=== PATIENT | male | born 1960 | race Two or more races ===

== ENCOUNTER 2016-05-28 10:23 | Inpatient (IN) | payer MEDICAID ==
[~2016-05-28] VITALS: Ht 177.8 cm; Wt 95.5 kg
[~2016-05-28 10:23] MED LIST: ALBUAER3 IN; ASPI81TA27 PO; ATOR20TA PO; BACL-63 PO; CLON05T PO; FENO5TAB PO; INSLANTI SC; LEVEPOW PO; LIDO5DIS21 TOP; METF-316 PO; METO5TAB2 PO; MORP15TA68 PO; NIFEDICAL PO; NOR10T PO; OMEP20CA5 PO; RANI-226 PO; SERT-274 PO; TAMS0.4C36 PO; TRAZ100T2 PO
[2016-05-28 11:57] LABS: Albumin 3.6 g/dL (3.4-5.0); BUN/Creatinine Ratio 10.8; Bilirubin, Total 0.6 mg/dL (0.2-1.0); Calcium 9.4 mg/dL (8.5-10.1); Potassium 3.4 mmol/L (3.5-5.1); Total Protein 8.1 g/dL (6.4-8.2)
[2016-05-28 12:11] LABS: Basophils # (auto) 0 uL; Basophils % (auto) 0.3 % (0.0-2.0); Eosinophils # (auto) 0.2 uL; Eosinophils % (auto) 2.7 % (0.0-7.0); Hematocrit 38.5 % (41.0-53.0); Hemoglobin 12.4 g/dL (13.5-17.5); Lymphocytes # (auto) 1.6 uL; Lymphocytes % (auto) 28.2 % (10.0-50.0); Mean Corpuscular Hemoglobin 27.8 pg (28.0-32.0); Mean Corpuscular Hgb Conc. 32.2 g/dL (32.0-36.0); Mean Corpuscular Volume 86.3 fL (80.0-100.0); Mean Platelet Volume 7.6 fL (7.4-10.4); Monocytes # (auto) 0.3 uL; Monocytes % (auto) 5.4 % (0.0-12.0); Neutrophils # (auto) 3.6 uL; Neutrophils % (auto) 63.4 % (37.0-80.0); Platelet Count (auto) 178 10^3/uL (140-450); Red Cell Distribution Width 14.9 % (11.6-16.0); White Blood Cell 5.6 10^3/uL (4.4-10.8)
[2016-05-28] MEDS ORDERED: KETOROLAC TROMETH 30 MG/ML 1ML VIAL IV ONE (13:00)
[2016-05-28] MEDS ORDERED: SODIUM CHLORIDE 0.9% 1,000 ML IV ONE (14:15)
[2016-05-28] MEDS ORDERED: HYDROcodone-ACET 10/325MG TAB PO ONE (14:45)
[2016-05-28] MEDS ORDERED: ONDANSETRON HCL 4 MG/2 ML VIAL IV ONE (19:45)
[2016-05-28] MEDS ORDERED: HYDROmorphone HCL 2 MG/ML VL IV ONE (19:45)
[2016-05-28] MEDS ORDERED: cloNIDine HCL 0.1 MG TAB PO ONE (19:45)
[2016-05-28 20:00] VITALS: BP 143/77
[2016-05-28] MEDS ORDERED: cloNIDine HCL 0.1 MG TAB ONE (20:05)
[2016-05-28] MEDS ORDERED: HYDROmorphone HCL 2 MG/ML VL ONE (20:05)
[2016-05-28] MEDS ORDERED: ONDANSETRON HCL 4 MG/2 ML VIAL ONE (20:05)
[2016-05-28] MEDS ORDERED: clonazePAM 0.5 MG TAB PO PRN (21:15)
[2016-05-28] MEDS ORDERED: ACETAMINOPHEN 325 MG TAB PO PRN (21:15)
[2016-05-28] MEDS ORDERED: NITROGLYCERIN 0.4 MG SL TAB SL PRN (21:15)
[2016-05-28] MEDS ORDERED: ALBUTEROL SULF 2.5 MG/0.5ML(0.5%) NEB SOLN NEB PRN (21:15)
[2016-05-28] MEDS ORDERED: LORazepam 2MG/ML-1ML VIAL IV PRN (21:15)
[2016-05-28] MEDS ORDERED: ONDANSETRON HCL 4 MG/2 ML VIAL IV PRN (21:15)
[2016-05-28] MEDS ORDERED: DEXTROSE (50%) 50ML SYRG IV PRN (21:15)
[2016-05-28] MEDS ORDERED: MORPHINE SULF INJ 2 MG/ML SYRINGE 1ML IV PRN (21:15)
[2016-05-28] MEDS: FAMOTIDINE 20 MG TAB PO SCH (21:39)
[2016-05-28] MEDS: MORPHINE SULF INJ 2 MG/ML SYRINGE 1ML IV PRN (21:39)
[2016-05-28] MEDS: ATORVASTATIN 20 MG TAB PO SCH (21:39)
[2016-05-28] MEDS: traZODone HCL 50 MG TAB PO SCH (21:39)
[2016-05-28] MEDS: LEVETIRACETAM 500 MG TAB PO SCH (21:44)
[2016-05-28 22:10] VITALS: BP 143/77
[2016-05-29] VITALS (9 sets, daily range): BP systolic 125–173; BP diastolic 61–90
[2016-05-29] MEDS: ACCU-CHEK COMFORT CURVE STRIP VI SCH ×5 (00:03→23:52)
[2016-05-29] MEDS: InsuLIN REG 1unit/0.01ml Soln (100units/ml) SC SCH ×5 (00:04→23:55)
[2016-05-29] MEDS: MORPHINE SULF INJ 2 MG/ML SYRINGE 1ML IV PRN ×6 (01:48→23:13)
[2016-05-29] MEDS: HYDROcodone-ACET 5/325MG TAB PO PRN ×4 (04:57→21:13)
[2016-05-29] MEDS ORDERED: INSLISPI SC (05:04)
[2016-05-29] MEDS ORDERED: INSLANTI SC (05:04)
[2016-05-29 06:19] LABS: Basophils # (auto) 0 uL; Basophils % (auto) 0.3 % (0.0-2.0); Eosinophils # (auto) 0.2 uL; Eosinophils % (auto) 4.1 % (0.0-7.0); Hematocrit 38.3 % (41.0-53.0); Hemoglobin 12.4 g/dL (13.5-17.5); Lymphocytes % (auto) 34.5 % (10.0-50.0); Mean Corpuscular Hemoglobin 27.9 pg (28.0-32.0); Mean Corpuscular Hgb Conc. 32.3 g/dL (32.0-36.0); Mean Corpuscular Volume 86.3 fL (80.0-100.0); Mean Platelet Volume 7.1 fL (7.4-10.4); Monocytes # (auto) 0.4 uL; Monocytes % (auto) 6.5 % (0.0-12.0); Neutrophils # (auto) 3.2 uL; Neutrophils % (auto) 54.6 % (37.0-80.0); Platelet Count (auto) 177 10^3/uL (140-450); Red Cell Distribution Width 15.5 % (11.6-16.0); White Blood Cell 5.8 10^3/uL (4.4-10.8)
[2016-05-29 06:39] LABS: Potassium 3.2 mmol/L (3.5-5.1)
[2016-05-29 06:49] LABS: Albumin 3.4 g/dL (3.4-5.0); BUN/Creatinine Ratio 10.8; Bilirubin, Total 0.5 mg/dL (0.2-1.0); Total Protein 7.6 g/dL (6.4-8.2)
[2016-05-29] MEDS: SERTRALINE HCL 50 MG TAB PO SCH (09:21)
[2016-05-29] MEDS: FAMOTIDINE 20 MG TAB PO SCH ×2 (09:21→21:53)
[2016-05-29] MEDS: LEVETIRACETAM 500 MG TAB PO SCH ×2 (09:21→21:55)
[2016-05-29] MEDS: ASPirin 81 mg TAB PO SCH (09:22)
[2016-05-29] MEDS: NIFEdipine ER 30 MG TAB PO SCH (09:22)
[2016-05-29] MEDS: ENOXAPARIN SOD 40 MG/0.4 ML SYRINGE SC SCH (09:23)
[2016-05-29] MEDS: HCTZ 25 MG TAB PO SCH (11:50)
[2016-05-29] MEDS: LISINOPRIL 10 MG TAB PO SCH (11:51)
[2016-05-29] MEDS ORDERED: POTASSIUM CHL 10% (20 MEQ/15ML) ORAL SOLN PO ONE (12:30)
[2016-05-29] MEDS ORDERED: POTASSIUM CHL 20 Meq TABLET PO ONE (13:30)
[2016-05-29] MEDS ORDERED: TAMSULOSIN HYDROCHLORIDE 0.4 MG CAP PO SCH (18:00)
[2016-05-29] MEDS: ATORVASTATIN 20 MG TAB PO SCH (21:53)
[2016-05-29] MEDS: traZODone HCL 50 MG TAB PO SCH (21:54)
[2016-05-30] MEDS: HYDROcodone-ACET 5/325MG TAB PO PRN ×3 (02:38→11:32)
[2016-05-30] MEDS: MORPHINE SULF INJ 2 MG/ML SYRINGE 1ML IV PRN ×4 (03:49→16:17)
[2016-05-30 05:00] VITALS: BP 112/67
[2016-05-30 06:05] LABS: Basophils # (auto) 0 uL; Basophils % (auto) 0.4 % (0.0-2.0); Eosinophils # (auto) 0.2 uL; Eosinophils % (auto) 2.7 % (0.0-7.0); Hematocrit 40.4 % (41.0-53.0); Lymphocytes # (auto) 2.6 uL; Lymphocytes % (auto) 36.7 % (10.0-50.0); Mean Corpuscular Hemoglobin 27.7 pg (28.0-32.0); Mean Corpuscular Hgb Conc. 32.1 g/dL (32.0-36.0); Mean Corpuscular Volume 86.3 fL (80.0-100.0); Mean Platelet Volume 7.6 fL (7.4-10.4); Monocytes # (auto) 0.4 uL; Monocytes % (auto) 6.4 % (0.0-12.0); Neutrophils # (auto) 3.8 uL; Neutrophils % (auto) 53.8 % (37.0-80.0); Platelet Count (auto) 193 10^3/uL (140-450); Red Cell Distribution Width 14.9 % (11.6-16.0)
[2016-05-30] MEDS: ACCU-CHEK COMFORT CURVE STRIP VI SCH ×2 (06:05→12:29)
[2016-05-30] MEDS: InsuLIN REG 1unit/0.01ml Soln (100units/ml) SC SCH ×2 (06:09→12:00)
[2016-05-30 06:29] LABS: Calcium 9.2 mg/dL (8.5-10.1)
[2016-05-30 06:45] LABS: Potassium 2.9 mmol/L (3.5-5.1)
[2016-05-30 08:10] VITALS: BP 127/80
[2016-05-30] MEDS ORDERED: IOHEXOL 350 MG/ML 100ML IJ ONE (08:21)
[2016-05-30] MEDS ORDERED: NITROGLYCERIN 0.4 MG SL TAB SL ONE (08:27)
[2016-05-30] MEDS ORDERED: METOPROLOL TARTRATE 1MG/1ML-5ML VIAL IV ONE (08:27)
[2016-05-30 08:30] VITALS: BP 127/80
[2016-05-30] MEDS ORDERED: POTASSIUM CHL 20 Meq TABLET PO ONE (08:45)
[2016-05-30] MEDS: ASPirin 81 mg TAB PO SCH (11:32)
[2016-05-30] MEDS: FAMOTIDINE 20 MG TAB PO SCH (11:32)
[2016-05-30] MEDS: LISINOPRIL 10 MG TAB PO SCH (11:33)
[2016-05-30] MEDS: LEVETIRACETAM 500 MG TAB PO SCH (11:34)
[2016-05-30] MEDS: NIFEdipine ER 30 MG TAB PO SCH (11:35)
[2016-05-30] MEDS: HCTZ 25 MG TAB PO SCH (11:37)
[2016-05-30] MEDS: ENOXAPARIN SOD 40 MG/0.4 ML SYRINGE SC SCH (11:37)
[2016-05-30] MEDS: SERTRALINE HCL 50 MG TAB PO SCH (11:37)
[2016-05-30 13:00] VITALS: BP 116/74
[2016-05-30 17:00] VITALS: BP 144/82
== END 2016-05-30 17:45 | disposition home or self-care (01) | DRG 204 ==
LOC: EDUNIT# 10:23 → ER 10:30 → TELE 10:31 → ER 13:32 → TELE-CENTR 22:02
PROVIDERS: ADMIT Internal Medicine; ATTEND Family Medicine
DX: R55 Syncope and collapse (principal); E11.65 Type 2 diabetes mellitus with hyperglycemia; K74.60 Unspecified cirrhosis of liver; I69.354 Hemiplegia and hemiparesis following cerebral infarction affecting left non-dominant side; E78.5 Hyperlipidemia, unspecified; E66.01 Morbid (severe) obesity due to excess calories; F19.10 Other psychoactive substance abuse, uncomplicated; I10 Essential (primary) hypertension; K21.9 Gastro-esophageal reflux disease without esophagitis; Z82.3 Family history of stroke; V89.2XXA Person injured in unspecified motor-vehicle accident, traffic, initial encounter; S16.1XXA Strain of muscle, fascia and tendon at neck level, initial encounter; Z82.49 Family history of ischemic heart disease and other diseases of the circulatory system; Z83.3 Family history of diabetes mellitus; Z87.11 Personal history of peptic ulcer disease; Z87.891 Personal history of nicotine dependence; F10.10 Alcohol abuse, uncomplicated; F32.9 Major depressive disorder, single episode, unspecified; F41.9 Anxiety disorder, unspecified; M19.90 Unspecified osteoarthritis, unspecified site; Z88.7 Allergy status to serum and vaccine; Z88.8 Allergy status to other drugs, medicaments and biological substances; Z79.82 Long term (current) use of aspirin; Z90.49 Acquired absence of other specified parts of digestive tract; Z80.9 Family history of malignant neoplasm, unspecified; Z68.30 Body mass index [BMI] 30.0-30.9, adult
CPT/HCPCS: 36415; 70450; 72125; 75574; 80048; 80053; 82962; 83036; 84132; 84484; 85025; 93005; 93306; 93886; 96361; 96374; 96375; J1815; J1885; J2405

== ENCOUNTER 2016-07-15 20:08 | Inpatient (IN) | payer MEDICAID ==
[~2016-07-15] VITALS: Ht 177.8 cm; Wt 95.0 kg
[~2016-07-15 20:08] MED LIST changes: +INSLISPI SC
[2016-07-15] MEDS ORDERED: SODIUM CHLORIDE 0.9% 1,000 ML IV ONE (21:00)
[2016-07-15] MEDS ORDERED: ONDANSETRON HCL 4 MG/2 ML VIAL IV ONE (21:00)
[2016-07-15] MEDS ORDERED: MORPHINE SULFATE 4 MG/ML SYRG IV ONE ×2 (21:00→23:45)
[2016-07-15 21:43] LABS: Albumin 3.5 g/dL (3.4-5.0); BUN/Creatinine Ratio 10.5; Bilirubin, Total 0.2 mg/dL (0.2-1.0); Calcium 8.9 mg/dL (8.5-10.1); Potassium 3.3 mmol/L (3.5-5.1); Total Protein 8.3 g/dL (6.4-8.2)
[2016-07-15 22:42] LABS: Urine Bilirubin Negative (Negative); Urine Blood Negative /uL (Negative); Urine Color Yellow (Yellow); Urine Ketone Negative (Negative); Urine Nitrite Negative (Negative); Urine RBC 4 /hpf (0 - 3); Urine Squamous Epithelial Cell FEW /hpf (<5); Urine Urobilinogen Normal (Negative); Urine pH 6.5 (5.0-8.0)
[2016-07-15 22:44] LABS: Urine Glucose 4+ mg/dL (Normal)
[2016-07-15] MEDS ORDERED: IOHEXOL 300 MG/ML 100ML BOTTLE IJ ONE (22:46)
[2016-07-15 22:57] LABS: Basophils # (auto) 0 uL; Basophils % (auto) 0.3 % (0.0-2.0); Eosinophils # (auto) 0.2 uL; Eosinophils % (auto) 3.2 % (0.0-7.0); Hematocrit 36.4 % (41.0-53.0); Hemoglobin 12.4 g/dL (13.5-17.5); Lymphocytes # (auto) 2.5 uL; Lymphocytes % (auto) 34.5 % (10.0-50.0); Mean Corpuscular Hemoglobin 29.5 pg (28.0-32.0); Mean Corpuscular Hgb Conc. 34.1 g/dL (32.0-36.0); Mean Corpuscular Volume 86.6 fL (80.0-100.0); Mean Platelet Volume 7.8 fL (7.4-10.4); Monocytes # (auto) 0.6 uL; Monocytes % (auto) 7.8 % (0.0-12.0); Neutrophils % (auto) 54.2 % (37.0-80.0); Platelet Count (auto) 201 10^3/uL (140-450); Red Cell Distribution Width 15.5 % (11.6-16.0); White Blood Cell 7.3 10^3/uL (4.4-10.8)
[2016-07-15] MEDS ORDERED: PROCHLORPERAZINE EDISYLATE 5 MG/ML 2ML VIAL IV ONE (23:15)
[2016-07-16] VITALS (8 sets, daily range): BP systolic 116–168; BP diastolic 61–106
[2016-07-16] MEDS ORDERED: HYDROmorphone HCL 2 MG/ML VL IV ONE (01:00)
[2016-07-16] MEDS ORDERED: ONDANSETRON HCL 4 MG/2 ML VIAL IV ONE (01:00)
[2016-07-16] MEDS ORDERED: MORPHINE SULFATE 4 MG/ML SYRG IV ONE (05:00)
[2016-07-16] MEDS ORDERED: SODIUM CHLORIDE 0.9% 1,000 ML IV SCH (05:36)
[2016-07-16] MEDS ORDERED: ACETAMINOPHEN 325 MG TAB PO PRN (05:45)
[2016-07-16] MEDS ORDERED: LORazepam 2MG/ML-1ML VIAL IV PRN (05:45)
[2016-07-16] MEDS ORDERED: DEXTROSE (50%) 50ML SYRG IV PRN (05:45)
[2016-07-16] MEDS ORDERED: POTASSIUM CHL 20 Meq TABLET PO ONE (05:45)
[2016-07-16] MEDS ORDERED: ALBUTEROL SULF 2.5 MG/0.5ML(0.5%) NEB SOLN NEB PRN (05:45)
[2016-07-16] MEDS: ACCU-CHEK COMFORT CURVE STRIP VI SCH ×3 (06:07→17:57)
[2016-07-16] MEDS: InsuLIN REG 1unit/0.01ml Soln (100units/ml) SC SCH ×3 (06:17→18:01)
[2016-07-16] MEDS: MORPHINE SULF INJ 2 MG/ML SYRINGE 1ML IV PRN ×4 (08:36→21:19)
[2016-07-16] MEDS: ONDANSETRON HCL 4 MG/2 ML VIAL IV PRN ×4 (08:40→21:20)
[2016-07-16] MEDS ORDERED: ENOXAPARIN SOD 30 MG/0.3 ML SYRINGE SC SCH (10:00)
[2016-07-16] MEDS: SERTRALINE HCL 50 MG TAB PO SCH (10:20)
[2016-07-16] MEDS: LEVETIRACETAM 500 MG TAB PO SCH ×2 (10:20→21:21)
[2016-07-16] MEDS: clonazePAM 0.5 MG TAB PO SCH ×2 (10:21→21:20)
[2016-07-16] MEDS: PANTOPRAZOLE SODIUM 40 MG/10 ML VIAL IV SCH (10:22)
[2016-07-16] MEDS: ENOXAPARIN SOD 40 MG/0.4 ML SYRINGE SC SCH (10:22)
[2016-07-16] MEDS: NIFEdipine ER 30 MG TAB PO SCH (10:22)
[2016-07-16] MEDS ORDERED: LISI2.5T47 PO (13:03)
[2016-07-16] MEDS ORDERED: AMLO5TAB2 PO (13:03)
[2016-07-16 15:40] LABS: INR 1.1 (0.9-1.15); Partial Thromboplastin Time 30.4 sec (22.64-33.71); Prothrombin Time 11.3 sec (9.37-12.3)
[2016-07-16] MEDS ORDERED: hydrALAZINE HCL 20 MG/ML VL IV PRN (16:30)
[2016-07-16] MEDS: SOD CHL 0.9%/ KCL 20MEQ 1,000 ML IV SCH ×2 (17:01→23:20)
[2016-07-16] MEDS: TAMSULOSIN HYDROCHLORIDE 0.4 MG CAP PO SCH (17:57)
[2016-07-16] MEDS: ATORVASTATIN 20 MG TAB PO SCH (21:20)
[2016-07-17] MEDS: ACCU-CHEK COMFORT CURVE STRIP VI SCH ×4 (00:18→16:59)
[2016-07-17] MEDS: ONDANSETRON HCL 4 MG/2 ML VIAL IV PRN ×2 (01:12→05:35)
[2016-07-17] MEDS: MORPHINE SULF INJ 2 MG/ML SYRINGE 1ML IV PRN ×6 (01:12→22:00)
[2016-07-17] MEDS: HYDROcodone-ACET 5/325MG TAB PO PRN ×4 (03:13→23:56)
[2016-07-17 05:00] VITALS: BP 158/88
[2016-07-17] MEDS: InsuLIN REG 1unit/0.01ml Soln (100units/ml) SC SCH ×4 (05:51→16:59)
[2016-07-17 06:38] LABS: Basophils # (auto) 0 uL; Basophils % (auto) 0.3 % (0.0-2.0); Eosinophils # (auto) 0.2 uL; Eosinophils % (auto) 2.8 % (0.0-7.0); Hematocrit 39.5 % (41.0-53.0); Hemoglobin 13.4 g/dL (13.5-17.5); Lymphocytes # (auto) 1.8 uL; Lymphocytes % (auto) 29.1 % (10.0-50.0); Mean Corpuscular Hgb Conc. 34.1 g/dL (32.0-36.0); Mean Corpuscular Volume 85.3 fL (80.0-100.0); Mean Platelet Volume 7.5 fL (7.4-10.4); Monocytes # (auto) 0.3 uL; Monocytes % (auto) 4.6 % (0.0-12.0); Neutrophils # (auto) 3.9 uL; Neutrophils % (auto) 63.2 % (37.0-80.0); Platelet Count (auto) 232 10^3/uL (140-450); Red Cell Distribution Width 15.7 % (11.6-16.0); White Blood Cell 6.1 10^3/uL (4.4-10.8)
[2016-07-17 07:06] LABS: Albumin 3.5 g/dL (3.4-5.0); Calcium 8.5 mg/dL (8.5-10.1); Potassium 3.6 mmol/L (3.5-5.1)
[2016-07-17 07:08] LABS: BUN/Creatinine Ratio 10.7
[2016-07-17 07:11] LABS: Bilirubin, Total 0.4 mg/dL (0.2-1.0); Total Protein 8.5 g/dL (6.4-8.2)
[2016-07-17] MEDS: SOD CHL 0.9%/ KCL 20MEQ 1,000 ML IV SCH ×2 (08:33→16:00)
[2016-07-17 09:00] VITALS: BP 140/78
[2016-07-17] MEDS: PANTOPRAZOLE SODIUM 40 MG/10 ML VIAL IV SCH (09:35)
[2016-07-17] MEDS: ENOXAPARIN SOD 40 MG/0.4 ML SYRINGE SC SCH (09:35)
[2016-07-17] MEDS: SERTRALINE HCL 50 MG TAB PO SCH (09:37)
[2016-07-17] MEDS: clonazePAM 0.5 MG TAB PO SCH ×2 (09:37→22:00)
[2016-07-17] MEDS: LEVETIRACETAM 500 MG TAB PO SCH ×2 (09:37→22:00)
[2016-07-17] MEDS: NIFEdipine ER 30 MG TAB PO SCH (09:38)
[2016-07-17 17:00] VITALS: BP 134/80
[2016-07-17] MEDS: TAMSULOSIN HYDROCHLORIDE 0.4 MG CAP PO SCH (17:00)
[2016-07-17 20:00] VITALS: BP 162/90
[2016-07-17 21:40] VITALS: BP 162/90
[2016-07-17] MEDS: PANTOPRAZOLE 40 MG TAB PO SCH (22:00)
[2016-07-17] MEDS: ATORVASTATIN 20 MG TAB PO SCH (22:00)
[2016-07-18] MEDS: ACCU-CHEK COMFORT CURVE STRIP VI SCH ×2 (00:01→06:16)
[2016-07-18] MEDS: InsuLIN REG 1unit/0.01ml Soln (100units/ml) SC SCH ×2 (00:18→06:00)
[2016-07-18] MEDS: SOD CHL 0.9%/ KCL 20MEQ 1,000 ML IV SCH ×2 (00:20→08:40)
[2016-07-18] MEDS: MORPHINE SULF INJ 2 MG/ML SYRINGE 1ML IV PRN ×3 (02:18→10:18)
[2016-07-18 05:58] VITALS: BP 140/80
[2016-07-18] MEDS: ONDANSETRON HCL 4 MG/2 ML VIAL IV PRN (06:15)
[2016-07-18 09:00] VITALS: BP 170/93
[2016-07-18] MEDS ORDERED: PANT40T PO (09:40)
[2016-07-18] MEDS: SERTRALINE HCL 50 MG TAB PO SCH (10:18)
[2016-07-18] MEDS: ENOXAPARIN SOD 40 MG/0.4 ML SYRINGE SC SCH (10:18)
[2016-07-18] MEDS: LEVETIRACETAM 500 MG TAB PO SCH (10:19)
[2016-07-18] MEDS: NIFEdipine ER 30 MG TAB PO SCH (10:19)
[2016-07-18] MEDS: clonazePAM 0.5 MG TAB PO SCH (10:19)
[2016-07-18] MEDS: PANTOPRAZOLE 40 MG TAB PO SCH (10:19)
[2016-07-18 10:51] VITALS: BP 170/93
== END 2016-07-18 11:30 | disposition home or self-care (01) | DRG 282 ==
LOC: EDUNIT# 20:08 → EDBD 20:08 → ER 20:12 → OVERFLOW 20:13 → WEST WING 07-16 08:09
PROVIDERS: ADMIT Nurse Practitioner; ATTEND Internal Medicine
DX: K85.90 Acute pancreatitis without necrosis or infection, unspecified (principal); Z76.82 Awaiting organ transplant status; C22.0 Liver cell carcinoma; K74.60 Unspecified cirrhosis of liver; E11.65 Type 2 diabetes mellitus with hyperglycemia; I10 Essential (primary) hypertension; K21.9 Gastro-esophageal reflux disease without esophagitis; F32.9 Major depressive disorder, single episode, unspecified; K31.84 Gastroparesis; E11.43 Type 2 diabetes mellitus with diabetic autonomic (poly)neuropathy; K29.70 Gastritis, unspecified, without bleeding; E78.5 Hyperlipidemia, unspecified; E87.6 Hypokalemia; E78.1 Pure hyperglyceridemia; F41.9 Anxiety disorder, unspecified; G40.909 Epilepsy, unspecified, not intractable, without status epilepticus; G89.29 Other chronic pain; K80.20 Calculus of gallbladder without cholecystitis without obstruction; Z82.3 Family history of stroke; Z82.49 Family history of ischemic heart disease and other diseases of the circulatory system; Z83.3 Family history of diabetes mellitus; Z86.73 Personal history of transient ischemic attack (TIA), and cerebral infarction without residual deficits; Z87.11 Personal history of peptic ulcer disease; M19.90 Unspecified osteoarthritis, unspecified site; Z88.6 Allergy status to analgesic agent; Z88.8 Allergy status to other drugs, medicaments and biological substances; Z90.49 Acquired absence of other specified parts of digestive tract; Z80.9 Family history of malignant neoplasm, unspecified; R16.0 Hepatomegaly, not elsewhere classified; Z79.82 Long term (current) use of aspirin
CPT/HCPCS: 36415; 74176; 74177; 80053; 81001; 82105; 82150; 82962; 83036; 83690; 85025; 85610; 85730; 86304; 87081; 93005; 96361; 96374; 96375; 96376; C9113; J1815; J2405

== ENCOUNTER 2016-07-21 19:31 | Emergency (ER) | payer MEDICAID ==
[~2016-07-21] VITALS: Ht 177.8 cm; Wt 96.2 kg
[~2016-07-21 19:31] MED LIST changes: +AMLO5TAB2 PO; -BACL-63 PO; +LISI2.5T47 PO; -METF-316 PO; -NIFEDICAL PO; +PANT40T PO; -RANI-226 PO
[2016-07-21 20:46] LABS: Basophils # (auto) 0 uL; Basophils % (auto) 0.4 % (0.0-2.0); Eosinophils # (auto) 0.2 uL; Eosinophils % (auto) 2.5 % (0.0-7.0); Hematocrit 38.2 % (41.0-53.0); Hemoglobin 13.1 g/dL (13.5-17.5); Lymphocytes # (auto) 1.7 uL; Lymphocytes % (auto) 26.4 % (10.0-50.0); Mean Corpuscular Hemoglobin 29.6 pg (28.0-32.0); Mean Corpuscular Hgb Conc. 34.2 g/dL (32.0-36.0); Mean Corpuscular Volume 86.5 fL (80.0-100.0); Mean Platelet Volume 7.9 fL (7.4-10.4); Monocytes # (auto) 0.4 uL; Monocytes % (auto) 5.8 % (0.0-12.0); Neutrophils # (auto) 4.1 uL; Neutrophils % (auto) 64.9 % (37.0-80.0); Platelet Count (auto) 209 10^3/uL (140-450); Red Cell Distribution Width 15.7 % (11.6-16.0); White Blood Cell 6.4 10^3/uL (4.4-10.8)
[2016-07-21 21:09] LABS: Albumin 3.7 g/dL (3.4-5.0); BUN/Creatinine Ratio 6.7; Bilirubin, Total 0.3 mg/dL (0.2-1.0); Calcium 9.4 mg/dL (8.5-10.1); Potassium 3.5 mmol/L (3.5-5.1); Total Protein 8.6 g/dL (6.4-8.2)
[2016-07-21] MEDS ORDERED: SODIUM CHLORIDE 0.9% 1,000 ML IV ONE (22:15)
[2016-07-21] MEDS ORDERED: HYDROmorphone HCL 2 MG/ML VL IV ONE (22:15)
[2016-07-21] MEDS ORDERED: ONDANSETRON HCL 4 MG/2 ML VIAL IV ONE (22:15)
[2016-07-22] MEDS ORDERED: HYDROmorphone HCL 2 MG/ML VL IV ONE (02:15)
[2016-07-22 02:39] VITALS: BP 167/107
== END 2016-07-22 04:46 | disposition home or self-care (01) ==
LOC: ER 19:31
DX: R10.13 Epigastric pain (principal); I10 Essential (primary) hypertension; E11.65 Type 2 diabetes mellitus with hyperglycemia; K74.60 Unspecified cirrhosis of liver; K21.9 Gastro-esophageal reflux disease without esophagitis; E78.5 Hyperlipidemia, unspecified; M19.90 Unspecified osteoarthritis, unspecified site; Z86.73 Personal history of transient ischemic attack (TIA), and cerebral infarction without residual deficits; Z79.82 Long term (current) use of aspirin; Z79.84 Long term (current) use of oral hypoglycemic drugs; Z79.899 Other long term (current) drug therapy; Z88.7 Allergy status to serum and vaccine
CPT/HCPCS: 36415; 36600; 71010; 76705; 80053; 82150; 82805; 83690; 83735; 85025; 93005; 96361; 96374; 96375; 96376; 99285; J1170; J2405; J7030; 94761

== ENCOUNTER 2016-08-08 18:01 | Emergency (ER) | payer MEDICAID ==
[~2016-08-08] VITALS: Ht 177.8 cm; Wt 96.2 kg
[2016-08-08 19:25] LABS: Basophils # (auto) 0 uL; Basophils % (auto) 0.3 % (0.0-2.0); Eosinophils # (auto) 0.2 uL; Eosinophils % (auto) 3.1 % (0.0-7.0); Hematocrit 36.8 % (41.0-53.0); Hemoglobin 12.4 g/dL (13.5-17.5); Lymphocytes # (auto) 2.3 uL; Lymphocytes % (auto) 32.3 % (10.0-50.0); Mean Corpuscular Hemoglobin 29.1 pg (28.0-32.0); Mean Corpuscular Hgb Conc. 33.8 g/dL (32.0-36.0); Mean Corpuscular Volume 86.2 fL (80.0-100.0); Mean Platelet Volume 7.2 fL (7.4-10.4); Monocytes # (auto) 0.6 uL; Monocytes % (auto) 8.4 % (0.0-12.0); Neutrophils # (auto) 3.9 uL; Neutrophils % (auto) 55.9 % (37.0-80.0); Platelet Count (auto) 193 10^3/uL (140-450); Red Cell Distribution Width 15.4 % (11.6-16.0)
[2016-08-08 19:49] LABS: Albumin 3.8 g/dL (3.4-5.0); Bilirubin, Total 0.2 mg/dL (0.2-1.0); Calcium 9.4 mg/dL (8.5-10.1); Total Protein 8.6 g/dL (6.4-8.2)
[2016-08-08] MEDS ORDERED: SODIUM CHLORIDE 0.9% 1,000 ML IV ONE (20:00)
[2016-08-08] MEDS ORDERED: ONDANSETRON HCL 4 MG/2 ML VIAL IV ONE (20:00)
[2016-08-08] MEDS ORDERED: HYDROmorphone HCL 2 MG/ML VL IV ONE ×2 (20:00→22:45)
[2016-08-08] MEDS ORDERED: POTASSIUM CHL 20 Meq TABLET PO ONE (22:00)
[2016-08-09] MEDS ORDERED: HYDROmorphone HCL 2 MG/ML VL IV ONE (02:00)
[2016-08-09 03:30] VITALS: BP 153/95
== END 2016-08-09 03:42 | disposition home or self-care (01) ==
LOC: EDBD 18:01 → ER 18:15
DX: R10.13 Epigastric pain (principal); R07.89 Other chest pain; R51 Headache; R11.2 Nausea with vomiting, unspecified; H54.0 Blindness, both eyes; E11.9 Type 2 diabetes mellitus without complications; Z79.4 Long term (current) use of insulin; K21.9 Gastro-esophageal reflux disease without esophagitis; I10 Essential (primary) hypertension; Z79.82 Long term (current) use of aspirin; Z79.899 Other long term (current) drug therapy; Z88.7 Allergy status to serum and vaccine; Z91.02 Food additives allergy status
CPT/HCPCS: 36415; 70450; 74176; 80053; 80320; 82962; 83735; 84484; 85025; 85379; 93005; 96361; 96374; 96375; 96376; 99285; G0434; J1170; J2405; J7030

== ENCOUNTER 2017-05-15 20:50 | Emergency (ER) | payer MEDICAID ==
[~2017-05-15] VITALS: Ht 177.8 cm; Wt 93.4 kg
[~2017-05-15 20:50] MED LIST changes: +MORP-109 PO; -MORP15TA68 PO; -OMEP20CA5 PO; +OMEP20CA74 PO
[2017-05-15 21:51] LABS: Basophils # (auto) 0 uL; Basophils % (auto) 0.5 % (0.0-2.0); Eosinophils # (auto) 0.2 uL; Eosinophils % (auto) 3.8 % (0.0-7.0); Hematocrit 34.1 % (41.0-53.0); Hemoglobin 11.3 g/dL (13.5-17.5); Lymphocytes % (auto) 32.4 % (10.0-50.0); Mean Corpuscular Hemoglobin 27.3 pg (28.0-32.0); Mean Corpuscular Volume 82.7 fL (80.0-100.0); Monocytes # (auto) 0.4 uL; Monocytes % (auto) 6.8 % (0.0-12.0); Neutrophils # (auto) 3.5 uL; Neutrophils % (auto) 56.5 % (37.0-80.0); Platelet Count (auto) 165 10^3/uL (140-450); Red Blood Cells 4.12 10^6/uL (4.5-5.90); Red Cell Distribution Width 14.8 % (11.8-14.3); White Blood Cell 6.2 10^3/uL (4.4-10.8)
[2017-05-15 22:10] LABS: Albumin 3.8 g/dL (3.4-5.0); BUN/Creatinine Ratio 12.3; Bilirubin, Total 0.2 mg/dL (0.2-1.0); Magnesium 1.7 mg/dL (1.6-2.6); Potassium 3.6 mmol/L (3.5-5.1); Total Protein 8.3 g/dL (6.4-8.2)
[2017-05-15 22:24] LABS: INR 0.98 (0.9-1.15); Partial Thromboplastin Time 27.1 sec (22.64-33.71); Prothrombin Time 10.7 sec (9.37-12.3)
[2017-05-15 23:29] LABS: Urine WBC None Seen /hpf (0 - 3)
[2017-05-15 23:35] LABS: Urine Bacteria NONE SEEN /hpf (None Seen); Urine Blood Negative /uL (Negative); Urine Specific Gravity 1.013 (1.001-1.035)
[2017-05-16] MEDS ORDERED: ONDANSETRON HCL 4 MG/2 ML VIAL IV ONE (01:45)
[2017-05-16] MEDS ORDERED: MORPHINE SULFATE 10 MG/ML INJ 1ML SDV IV ONE (01:45)
[2017-05-16 02:18] LABS: Alcohol, Urine < 3.0 mg/dL (0-5); Amphetamine Screen, Urine NEGATIVE (NEGATIVE); Barbiturate Scree,Urine POSITIVE (NEGATIVE); Benzodiazephine Screen, Urine POSITIVE (NEGATIVE); Cannabinoid Screen, Urine POSITIVE (NEGATIVE); Cocaine Screen, Urine NEGATIVE (NEGATIVE); Opiate Scree,Urine POSITIVE (NEGATIVE); Phencyclidine Screen, Urine NEGATIVE (NEGATIVE)
[2017-05-16] MEDS ORDERED: cloNIDine HCL 0.1 MG TAB PO ONE (03:45)
[2017-05-16 05:07] VITALS: BP 160/103
[2017-05-16] MEDS ORDERED: LABETALOL HCL 200 MG TAB PO ONE (05:15)
[2017-05-16] MEDS ORDERED: NITROGLYCERIN 0.4 MG SL TAB SL PRN (06:15)
[2017-05-16] MEDS ORDERED: cloNIDine HCL 0.1 MG TAB PO PRN (06:15)
[2017-05-16] MEDS ORDERED: ONDANSETRON HCL 4 MG/2 ML VIAL IV PRN (06:15)
[2017-05-16] MEDS ORDERED: HYDROcodone-ACET 5/325MG TAB PO PRN (06:15)
[2017-05-16] MEDS ORDERED: ACETAMINOPHEN 325 MG TAB PO PRN (06:15)
[2017-05-16] MEDS ORDERED: DEXTROSE (50%) 50ML SYRG IV PRN (06:15)
[2017-05-16] MEDS ORDERED: MORPHINE SULFATE 10 MG/ML INJ 1ML SDV IV PRN (06:15)
[2017-05-16] MEDS ORDERED: LEVETIRACETAM 500 MG TAB PO SCH (10:00)
[2017-05-16] MEDS ORDERED: LISINOPRIL 5 MG TAB PO SCH (10:00)
[2017-05-16] MEDS ORDERED: amLODIPine BESYLATE 5 MG TAB PO SCH (10:00)
[2017-05-16] MEDS ORDERED: FAMOTIDINE 20 MG TAB PO SCH (10:00)
[2017-05-16] MEDS ORDERED: ASPirin 81 mg TAB PO SCH (10:00)
[2017-05-16] MEDS ORDERED: SERTRALINE HCL 50 MG TAB PO SCH (10:00)
[2017-05-16] MEDS ORDERED: ENOXAPARIN SOD 40 MG/0.4 ML SYRINGE SC SCH (10:00)
[2017-05-16] MEDS ORDERED: InsuLIN REG 1unit/0.01ml Soln (100units/ml) SC SCH (12:00)
[2017-05-16] MEDS ORDERED: ACCU-CHEK COMFORT CURVE STRIP VI SCH (12:00)
[2017-05-16] MEDS ORDERED: ATORVASTATIN 20 MG TAB PO SCH (22:00)
== END 2017-05-16 06:01 | disposition left against medical advice (07) ==
LOC: EDBD 20:50 → ER 20:53
DX: R07.89 Other chest pain (principal); F13.20 Sedative, hypnotic or anxiolytic dependence, uncomplicated; F11.90 Opioid use, unspecified, uncomplicated; F12.90 Cannabis use, unspecified, uncomplicated; I25.10 Atherosclerotic heart disease of native coronary artery without angina pectoris; I10 Essential (primary) hypertension; E11.9 Type 2 diabetes mellitus without complications; E78.00 Pure hypercholesterolemia, unspecified; I25.2 Old myocardial infarction; K21.9 Gastro-esophageal reflux disease without esophagitis; G89.29 Other chronic pain; M54.2 Cervicalgia; Z91.018 Allergy to other foods; Z88.7 Allergy status to serum and vaccine; Z79.4 Long term (current) use of insulin; Z79.82 Long term (current) use of aspirin; Z79.899 Other long term (current) drug therapy; Z53.29 Procedure and treatment not carried out because of patient's decision for other reasons
CPT/HCPCS: 36415; 71045; 80053; 80307; 80329; 81001; 83735; 83880; 84443; 84484; 85025; 85379; 85610; 85730; 93005; 94761; 96374; 96375; 99285; J2270; J2405

== ENCOUNTER 2017-05-27 22:24 | Emergency (ER) | payer MEDICAID ==
[~2017-05-27] VITALS: Ht 177.8 cm; Wt 104.3 kg
[2017-05-27] MEDS ORDERED: ONDANSETRON HCL 4 MG/2 ML VIAL IV ONE (23:00)
[2017-05-27] MEDS ORDERED: MORPHINE SULF INJ 2 MG/ML SYRINGE 1ML IV PRN (23:00)
[2017-05-27] MEDS ORDERED: MORPHINE SULF INJ 2 MG/ML SYRINGE 1ML ONE (23:06)
[2017-05-27] MEDS ORDERED: cloNIDine HCL 0.1 MG TAB ONE (23:06)
[2017-05-27 23:14] LABS: Basophils # (auto) 0 uL; Basophils % (auto) 0.4 % (0.0-2.0); Eosinophils # (auto) 0.1 uL; Eosinophils % (auto) 0.8 % (0.0-7.0); Hematocrit 36.6 % (41.0-53.0); Hemoglobin 12.3 g/dL (13.5-17.5); Lymphocytes # (auto) 2.1 uL; Lymphocytes % (auto) 24.1 % (10.0-50.0); Mean Corpuscular Hemoglobin 27.4 pg (28.0-32.0); Mean Corpuscular Hgb Conc. 33.7 g/dL (32.0-36.0); Mean Corpuscular Volume 81.3 fL (80.0-100.0); Monocytes # (auto) 0.6 uL; Monocytes % (auto) 6.6 % (0.0-12.0); Neutrophils # (auto) 5.9 uL; Neutrophils % (auto) 68.1 % (37.0-80.0); Nucleated Red Blood Cells % 0.1 %; Platelet Count (auto) 208 10^3/uL (140-450); Red Blood Cells 4.51 10^6/uL (4.5-5.90); Red Cell Distribution Width 14.7 % (11.8-14.3); White Blood Cell 8.7 10^3/uL (4.4-10.8)
[2017-05-27] MEDS ORDERED: cloNIDine HCL 0.1 MG TAB PO ONE (23:15)
[2017-05-27 23:28] LABS: INR 0.99 (0.9-1.15); Partial Thromboplastin Time 21.5 sec (22.64-33.71); Prothrombin Time 10.8 sec (9.37-12.3)
[2017-05-27 23:47] LABS: Albumin 4.2 g/dL (3.4-5.0); BUN/Creatinine Ratio 13.8; Bilirubin, Total 0.2 mg/dL (0.2-1.0); Calcium 9.4 mg/dL (8.5-10.1); Magnesium 1.8 mg/dL (1.6-2.6); Potassium 3.2 mmol/L (3.5-5.1); Total Protein 9.2 g/dL (6.4-8.2)
[2017-05-28] MEDS ORDERED: ONDANSETRON HCL 4 MG/2 ML VIAL IV ONE (01:15)
[2017-05-28] MEDS ORDERED: MORPHINE SULFATE 10 MG/ML INJ 1ML SDV IV ONE (01:15)
[2017-05-28 01:35] VITALS: BP 145/85
== END 2017-05-28 02:57 | disposition home or self-care (01) ==
LOC: EDBD 22:24 → EDUNIT# 22:29 → ER 22:29
DX: R07.89 Other chest pain (principal); E11.9 Type 2 diabetes mellitus without complications; K21.9 Gastro-esophageal reflux disease without esophagitis; E78.5 Hyperlipidemia, unspecified; I10 Essential (primary) hypertension; Z86.73 Personal history of transient ischemic attack (TIA), and cerebral infarction without residual deficits
CPT/HCPCS: 36415; 71045; 80053; 83735; 83880; 84443; 84484; 85025; 85610; 85730; 93005; 94761; 96374; 96375; 96376; 99285; J2270; J2405

== ENCOUNTER 2017-06-29 19:31 | Emergency (ER) | payer MEDICAID ==
[~2017-06-29] VITALS: Ht 177.8 cm; Wt 93.0 kg
[2017-06-29] MEDS ORDERED: ONDANSETRON HCL 4 MG/2 ML VIAL IV ONE (21:30)
[2017-06-29] MEDS ORDERED: NALBUPHINE HCL 10 MG/1ml INJECTION IV ONE (21:30)
[2017-06-29 22:35] LABS: Basophils # (auto) 0.1 uL; Eosinophils # (auto) 0.2 uL; Hemoglobin 11.6 g/dL (13.5-17.5); Mean Corpuscular Hgb Conc. 33.8 g/dL (32.0-36.0); Neutrophils # (auto) 2.9 uL
[2017-06-29 22:37] LABS: Eosinophils % (auto) 3.4 % (0.0-7.0); Hematocrit 34.4 % (41.0-53.0); Lymphocytes # (auto) 2.1 uL; Lymphocytes % (auto) 36.8 % (10.0-50.0); Mean Corpuscular Hemoglobin 26.7 pg (28.0-32.0); Mean Corpuscular Volume 79.1 fL (80.0-100.0); Monocytes # (auto) 0.4 uL; Monocytes % (auto) 7.8 % (0.0-12.0); Nucleated Red Blood Cells % 0.3 %; Platelet Count (auto) 156 10^3/uL (140-450); Red Blood Cells 4.35 10^6/uL (4.5-5.90); Red Cell Distribution Width 15.3 % (11.8-14.3); White Blood Cell 5.7 10^3/uL (4.4-10.8)
[2017-06-29 22:49] LABS: INR 0.98 (0.9-1.15); Partial Thromboplastin Time 27.4 sec (22.64-33.71); Prothrombin Time 10.7 sec (9.37-12.3)
[2017-06-29 22:58] LABS: Alanine Aminotransferase 39 U/L (16-61); Albumin 3.7 g/dL (3.4-5.0); Alkaline Phosphatase 111 U/L (45-117); Anion Gap 12 (5-15); Aspartate Aminotransferase 37 U/L (15-37); BUN/Creatinine Ratio 16.2; Bilirubin, Total 0.3 mg/dL (0.2-1.0); Blood Urea Nitrogen 12 mg/dL (7-18); Calcium 8.9 mg/dL (8.5-10.1); Carbon Dioxide 24 mmol/L (21-32); Chloride 102 mmol/L (98-107); GFR African American 141 mL/min; GFR Non-African American 116 mL/min; Glucose 146 mg/dL (74-106); Potassium 3.3 mmol/L (3.5-5.1); Sodium 138 mmol/L (136-145); Total Protein 8.3 g/dL (6.4-8.2)
[2017-06-30 00:20] VITALS: BP 160/105
== END 2017-06-30 00:42 | disposition home or self-care (01) ==
LOC: ER 19:31 → EDBD 19:31 → MERGE 19:31 → ER 06-30 00:42
DX: R07.89 Other chest pain (principal); K21.9 Gastro-esophageal reflux disease without esophagitis; E78.5 Hyperlipidemia, unspecified; I10 Essential (primary) hypertension; E66.01 Morbid (severe) obesity due to excess calories; E11.9 Type 2 diabetes mellitus without complications; Z68.29 Body mass index [BMI] 29.0-29.9, adult; Z86.73 Personal history of transient ischemic attack (TIA), and cerebral infarction without residual deficits; Z90.49 Acquired absence of other specified parts of digestive tract
CPT/HCPCS: 36415; 71045; 74176; 80053; 82140; 83690; 83880; 84484; 85025; 85610; 85730; 93005; 96374; 96375; 99285; J2300; J2405

== ENCOUNTER 2017-09-16 16:43 | Inpatient (IN) | payer MEDICAID ==
[~2017-09-16] VITALS: Ht 177.8 cm; Wt 96.7 kg
[2017-09-16] MEDS ORDERED: SODIUM CHLORIDE 0.9% 1,000 ML IV ONE (17:34)
[2017-09-16] MEDS ORDERED: PANTOPRAZOLE 40 MG/10 ML VIAL IV ONE (17:45)
[2017-09-16 18:54] LABS: Eosinophils # (auto) 0.2 uL; Neutrophils # (auto) 3.6 uL
[2017-09-16 18:55] LABS: Basophils # (auto) 0 uL; Basophils % (auto) 0.6 % (0.0-2.0); Hematocrit 32.3 % (41.0-53.0); Lymphocytes # (auto) 2.8 uL; Lymphocytes % (auto) 39.5 % (10.0-50.0); Mean Corpuscular Hemoglobin 25.9 pg (28.0-32.0); Mean Corpuscular Volume 76.3 fL (80.0-100.0); Monocytes # (auto) 0.5 uL; Monocytes % (auto) 6.5 % (0.0-12.0); Neutrophils % (auto) 50.4 % (37.0-80.0); Nucleated Red Blood Cells % 0.1 %; Platelet Count (auto) 220 10^3/uL (140-450); Red Blood Cells 4.24 10^6/uL (4.5-5.90); Red Cell Distribution Width 16.6 % (11.8-14.3); White Blood Cell 7.1 10^3/uL (4.4-10.8)
[2017-09-16 19:14] LABS: Albumin 3.4 g/dL (3.4-5.0); Anion Gap 12 (5-15); BUN/Creatinine Ratio 9.2; Blood Urea Nitrogen 7 mg/dL (7-18); Calcium 8.8 mg/dL (8.5-10.1); Carbon Dioxide 24 mmol/L (21-32); Chloride 96 mmol/L (98-107); GFR African American 136 mL/min; GFR Non-African American 113 mL/min; Glucose 261 mg/dL (74-106); Sodium 132 mmol/L (136-145)
[2017-09-16 19:18] LABS: Alkaline Phosphatase 125 U/L (45-117); Bilirubin, Total 0.3 mg/dL (0.2-1.0); Potassium 2.9 mmol/L (3.5-5.1); Total Protein 8.2 g/dL (6.4-8.2)
[2017-09-16 19:54] LABS: Aspartate Aminotransferase 33 U/L (15-37)
[2017-09-16 19:55] LABS: Alanine Aminotransferase 36 U/L (16-61)
[2017-09-16] MEDS ORDERED: POTASSIUM CHL 20 Meq TABLET PO ONE ×2 (20:00→21:30)
[2017-09-16] MEDS ORDERED: ONDANSETRON HCL 4 MG/2 ML VIAL IV ONE (20:15)
[2017-09-16] MEDS ORDERED: MORPHINE SULFATE 4 MG/ML SYR/VIAL IV ONE (20:15)
[2017-09-16] MEDS ORDERED: DEXTROSE (50%) 50ML SYRG IV PRN (21:30)
[2017-09-16] MEDS ORDERED: ACETAMINOPHEN 500 MG TAB PO PRN (21:30)
[2017-09-16] MEDS: INSULIN LANTUS (GLARGINE) 1 /0.01ml (100units/ml) SC SCH (22:00)
[2017-09-16] MEDS: InsuLIN REG 1unit/0.01ml Soln (100units/ml) SC SCH (22:00)
[2017-09-16] MEDS: ACCU-CHEK COMFORT CURVE STRIP VI SCH (22:00)
[2017-09-16] MEDS ORDERED: hydrALAZINE HCL 25 MG TAB PO ONE (23:00)
[2017-09-16] MEDS ORDERED: ZOLPIDEM TARTRATE 5 MG TAB PO PRN (23:00)
[2017-09-17] VITALS (8 sets, daily range): BP systolic 108–166; BP diastolic 50–110
[2017-09-17 00:29] LABS: HDL Cholesterol 25 mg/dL (40-59); Triglycerides 975 mg/dL (< 150)
[2017-09-17 00:49] LABS: Cholesterol 346 mg/dL (< 200)
[2017-09-17] MEDS ORDERED: MORPHINE SULF INJ 2 MG/ML SYRINGE 1ML ONE ×2 (00:55→05:09)
[2017-09-17] MEDS: MORPHINE SULFATE 4 MG/ML SYR/VIAL IV PRN ×4 (01:02→14:30)
[2017-09-17] MEDS: ONDANSETRON HCL 4 MG/2 ML VIAL IV PRN ×3 (02:10→16:43)
[2017-09-17 04:00] LABS: Urine Bacteria NONE SEEN /hpf (None Seen); Urine Blood Negative /uL (Negative); Urine Specific Gravity 1.006 (1.001-1.035); Urine WBC <1 /hpf (0 - 3)
[2017-09-17 06:28] LABS: Basophils # (auto) 0.1 uL; Nucleated Red Blood Cells % 0.2 %; Platelet Count (auto) 240 10^3/uL (140-450)
[2017-09-17 06:31] LABS: Basophils % (auto) 1.8 % (0.0-2.0); Eosinophils # (auto) 0.1 uL; Eosinophils % (auto) 1.9 % (0.0-7.0); Hematocrit 33.9 % (41.0-53.0); Hemoglobin 11.6 g/dL (13.5-17.5); Lymphocytes # (auto) 2.1 uL; Lymphocytes % (auto) 30.6 % (10.0-50.0); Mean Corpuscular Hemoglobin 26.2 pg (28.0-32.0); Mean Corpuscular Hgb Conc. 34.2 g/dL (32.0-36.0); Mean Corpuscular Volume 76.7 fL (80.0-100.0); Monocytes # (auto) 0.3 uL; Monocytes % (auto) 4.5 % (0.0-12.0); Neutrophils # (auto) 4.2 uL; Neutrophils % (auto) 61.2 % (37.0-80.0); Red Blood Cells 4.42 10^6/uL (4.5-5.90); Red Cell Distribution Width 16.4 % (11.8-14.3); White Blood Cell 6.8 10^3/uL (4.4-10.8)
[2017-09-17] MEDS: ACCU-CHEK COMFORT CURVE STRIP VI SCH ×4 (06:35→21:48)
[2017-09-17] MEDS: InsuLIN REG 1unit/0.01ml Soln (100units/ml) SC SCH ×4 (06:35→21:47)
[2017-09-17 06:41] LABS: BUN/Creatinine Ratio 10.6; Calcium 8.7 mg/dL (8.5-10.1); Potassium 3.3 mmol/L (3.5-5.1)
[2017-09-17] MEDS: LISINOPRIL 20 MG TAB PO SCH (09:04)
[2017-09-17] MEDS: HYDROcodone-ACET 5/325MG TAB PO PRN ×3 (09:05→17:30)
[2017-09-17] MEDS: hydrALAZINE HCL 25 MG TAB PO SCH ×2 (09:05→21:46)
[2017-09-17] MEDS: INSULIN LANTUS (GLARGINE) 1 /0.01ml (100units/ml) SC SCH ×2 (09:10→21:47)
[2017-09-17] MEDS ORDERED: PANTOPRAZOLE 40 MG/10 ML VIAL IV SCH ×2 (10:00)
[2017-09-17] MEDS ORDERED: LEVETIRACETAM 500 MG TAB PO ONE (13:45)
[2017-09-17] MEDS ORDERED: MORPHINE SULFATE INJECTION 1 ML ONE (14:15)
[2017-09-17] MEDS ORDERED: GASTROGRAFIN 30 ML SOL ONE (14:53)
[2017-09-17] MEDS ORDERED: IOHEXOL 300 MG/ML 100ML BOTTLE IJ ONE (17:08)
[2017-09-17] MEDS: VANCOMYCIN HCL 125MG/5ML ORAL SOL GT SCH ×2 (18:24→21:45)
[2017-09-17] MEDS: traZODone HCL 50 MG TAB PO SCH (21:46)
[2017-09-17] MEDS: PANTOPRAZOLE 40 MG/10 ML VIAL IV SCH (21:46)
[2017-09-17] MEDS: clonazePAM 0.5 MG TAB PO SCH (21:46)
[2017-09-18] MEDS ORDERED: MORPHINE SULFATE INJECTION 1 ML ONE ×2 (01:55→07:06)
[2017-09-18] MEDS: MORPHINE SULFATE 4 MG/ML SYR/VIAL IV PRN ×2 (01:59→07:08)
[2017-09-18 05:00] VITALS: BP 120/74
[2017-09-18] MEDS: VANCOMYCIN HCL 125MG/5ML ORAL SOL GT SCH ×4 (05:15→21:43)
[2017-09-18] MEDS: ACCU-CHEK COMFORT CURVE STRIP VI SCH ×4 (06:06→21:45)
[2017-09-18] MEDS: InsuLIN REG 1unit/0.01ml Soln (100units/ml) SC SCH ×4 (06:06→21:44)
[2017-09-18 09:15] VITALS: BP 119/57
[2017-09-18] MEDS: clonazePAM 0.5 MG TAB PO SCH ×2 (10:56→21:42)
[2017-09-18] MEDS: PANTOPRAZOLE 40 MG/10 ML VIAL IV SCH ×2 (10:56→21:42)
[2017-09-18] MEDS: hydrALAZINE HCL 25 MG TAB PO SCH ×2 (10:56→21:43)
[2017-09-18] MEDS: LISINOPRIL 20 MG TAB PO SCH (10:57)
[2017-09-18] MEDS: SERTRALINE HCL 50 MG TAB PO SCH (10:57)
[2017-09-18] MEDS: HYDROcodone-ACET 5/325MG TAB PO PRN (11:08)
[2017-09-18] MEDS: INSULIN LANTUS (GLARGINE) 1 /0.01ml (100units/ml) SC SCH ×2 (11:17→21:45)
[2017-09-18] MEDS ORDERED: GOLYTELY 4L KIT PO ONE (12:45)
[2017-09-18 13:18] VITALS: BP 116/72
[2017-09-18 13:42] LABS: INR 0.97 (0.9-1.15); Prothrombin Time 10.4 sec (9.27-12.13)
[2017-09-18] MEDS: MORPHINE SULFATE 8mg/ml INJ SDV IV PRN ×3 (13:55→21:57)
[2017-09-18 17:04] VITALS: BP 120/68
[2017-09-18] MEDS: ONDANSETRON HCL 4 MG/2 ML VIAL IV PRN (18:05)
[2017-09-18] MEDS: traZODone HCL 50 MG TAB PO SCH (21:42)
[2017-09-18 22:00] VITALS: BP 128/73
[2017-09-19] MEDS: MORPHINE SULFATE 8mg/ml INJ SDV IV PRN ×4 (03:43→19:50)
[2017-09-19 05:14] VITALS: BP 115/57
[2017-09-19] MEDS ORDERED: GOLYTELY 4L KIT PO ONE (06:00)
[2017-09-19] MEDS: VANCOMYCIN HCL 125MG/5ML ORAL SOL GT SCH ×4 (06:00→22:00)
[2017-09-19] MEDS: InsuLIN REG 1unit/0.01ml Soln (100units/ml) SC SCH ×4 (06:30→22:01)
[2017-09-19] MEDS: ACCU-CHEK COMFORT CURVE STRIP VI SCH ×4 (06:30→22:02)
[2017-09-19 07:24] VITALS: BP 112/63
[2017-09-19] MEDS ORDERED: NALOXONE HCL 0.4 MG/ML VIAL ONE (08:09)
[2017-09-19] MEDS ORDERED: FLUMAZENIL 0.1 MG/ML INJ 10ML MDV IV ONE (08:09)
[2017-09-19] MEDS ORDERED: LIDOCAINE VISCOUS 2% 15ML UD ONE (08:10)
[2017-09-19] MEDS ORDERED: diphenhdrAMINE HCL 50 MG/1 ML VL ONE (08:10)
[2017-09-19] MEDS ORDERED: SODIUM CHLORIDE LOCK 10 ML ONE (08:10)
[2017-09-19] MEDS: fentaNYL CITRATE 100 MCG/2 ML VL ONE ×3 (09:17→09:26)
[2017-09-19] MEDS: MIDAZOLAM HCL 5 MG/ML-1ML VIAL ONE ×3 (09:17→09:26)
[2017-09-19] MEDS ORDERED: HYOSCYAMINE SULF 0.125 MG TAB PO PRN (10:30)
[2017-09-19] MEDS: PANTOPRAZOLE 40 MG/10 ML VIAL IV SCH ×2 (11:04→22:00)
[2017-09-19] MEDS: hydrALAZINE HCL 25 MG TAB PO SCH ×2 (11:04→22:00)
[2017-09-19] MEDS: SERTRALINE HCL 50 MG TAB PO SCH (11:05)
[2017-09-19] MEDS: LISINOPRIL 20 MG TAB PO SCH (11:05)
[2017-09-19] MEDS: INSULIN LANTUS (GLARGINE) 1 /0.01ml (100units/ml) SC SCH ×2 (11:05→22:02)
[2017-09-19] MEDS: clonazePAM 0.5 MG TAB PO SCH ×2 (11:05→22:01)
[2017-09-19 13:18] VITALS: BP 133/73
[2017-09-19 17:08] VITALS: BP 139/78
[2017-09-19 22:00] VITALS: BP 140/60
[2017-09-19] MEDS: traZODone HCL 50 MG TAB PO SCH (22:00)
[2017-09-20] MEDS: MORPHINE SULFATE 8mg/ml INJ SDV IV PRN ×3 (00:03→09:42)
[2017-09-20 05:00] VITALS: BP 110/53
[2017-09-20] MEDS: VANCOMYCIN HCL 125MG/5ML ORAL SOL GT SCH ×2 (05:31→12:16)
[2017-09-20] MEDS: InsuLIN REG 1unit/0.01ml Soln (100units/ml) SC SCH ×2 (06:02→12:15)
[2017-09-20] MEDS: ACCU-CHEK COMFORT CURVE STRIP VI SCH ×2 (06:03→12:15)
[2017-09-20] MEDS: HYDROcodone-ACET 5/325MG TAB PO PRN ×2 (08:30→13:43)
[2017-09-20 09:18] VITALS: BP 125/67
[2017-09-20] MEDS: PANTOPRAZOLE 40 MG/10 ML VIAL IV SCH (09:42)
[2017-09-20] MEDS: SERTRALINE HCL 50 MG TAB PO SCH (09:48)
[2017-09-20] MEDS: clonazePAM 0.5 MG TAB PO SCH (09:48)
[2017-09-20] MEDS: LISINOPRIL 20 MG TAB PO SCH (09:51)
[2017-09-20] MEDS: hydrALAZINE HCL 25 MG TAB PO SCH (09:52)
[2017-09-20] MEDS: INSULIN LANTUS (GLARGINE) 1 /0.01ml (100units/ml) SC SCH (12:15)
[2017-09-20 12:51] VITALS: BP 125/67
[2017-09-20 13:00] VITALS: BP 128/87
== END 2017-09-20 18:48 | disposition home or self-care (01) | DRG 241 ==
LOC: ER 16:43 → TELE 16:44 → TELE-CENTR 23:36
PROVIDERS: ADMIT Nurse Practitioner Family; ATTEND Internal Medicine Pulmonary Disease
PROC: 0DBL8ZZ Excision of Transverse Colon, Via Natural or Artificial Opening Endoscopic (ICD-10-PCS; 2017-09-19)
PROC: 0DB68ZX Excision of Stomach, Via Natural or Artificial Opening Endoscopic, Diagnostic (ICD-10-PCS; principal; 2017-09-19 09:12)
PROC: 0DBE8ZX Excision of Large Intestine, Via Natural or Artificial Opening Endoscopic, Diagnostic (ICD-10-PCS; 2017-09-19 09:12)
DX: K29.60 Other gastritis without bleeding (principal); E11.65 Type 2 diabetes mellitus with hyperglycemia; K74.60 Unspecified cirrhosis of liver; K52.9 Noninfective gastroenteritis and colitis, unspecified; E87.1 Hypo-osmolality and hyponatremia; E87.6 Hypokalemia; D12.3 Benign neoplasm of transverse colon; D64.9 Anemia, unspecified; N40.0 Benign prostatic hyperplasia without lower urinary tract symptoms; K57.30 Diverticulosis of large intestine without perforation or abscess without bleeding; E66.9 Obesity, unspecified; E78.5 Hyperlipidemia, unspecified; I10 Essential (primary) hypertension; J45.909 Unspecified asthma, uncomplicated; K21.9 Gastro-esophageal reflux disease without esophagitis; K64.8 Other hemorrhoids; Z86.73 Personal history of transient ischemic attack (TIA), and cerebral infarction without residual deficits; Z87.11 Personal history of peptic ulcer disease; Z82.49 Family history of ischemic heart disease and other diseases of the circulatory system; Z79.4 Long term (current) use of insulin; Y92.009 Unspecified place in unspecified non-institutional (private) residence as the place of occurrence of the external cause; Z79.82 Long term (current) use of aspirin; Z79.899 Other long term (current) drug therapy; Z83.3 Family history of diabetes mellitus; Z82.3 Family history of stroke; Z80.9 Family history of malignant neoplasm, unspecified
CPT/HCPCS: 36415; 43239; 45380; 70450; 71045; 74177; 80048; 80053; 80061; 81001; 82705; 82962; 83036; 83690; 83735; 83880; 84484; 85025; 85610; 93005; 94761; 96361; 96374; 96375; C9113; J1815; J2250; J2270; J2405

== ENCOUNTER 2018-04-10 18:08 | Emergency (ER) | payer MEDICAID ==
[~2018-04-10] VITALS: Ht 177.8 cm; Wt 95.3 kg
[~2018-04-10 18:08] MED LIST changes: -AMLO5TAB2 PO; +MORP30TA PO; -OMEP20CA74 PO
[2018-04-10 19:34] LABS: Basophils # (auto) 0 uL; Basophils % (auto) 0.5 % (0.0-2.0); Mean Corpuscular Hemoglobin 24.6 pg (28.0-32.0); Monocytes # (auto) 0.5 uL; Neutrophils # (auto) 4.2 uL; White Blood Cell 6.9 10^3/uL (4.4-10.8)
[2018-04-10 19:35] LABS: Eosinophils # (auto) 0.1 uL; Hematocrit 38.6 % (41.0-53.0); Hemoglobin 12.7 g/dL (13.5-17.5); Lymphocytes % (auto) 29.3 % (10.0-50.0); Mean Corpuscular Hgb Conc. 32.8 g/dL (32.0-36.0); Mean Corpuscular Volume 75.1 fL (80.0-100.0); Monocytes % (auto) 7.2 % (0.0-12.0); Platelet Count (auto) 173 10^3/uL (140-450); Red Blood Cells 5.14 10^6/uL (4.5-5.90); Red Cell Distribution Width 17.8 % (11.8-14.3)
[2018-04-10 19:52] LABS: Albumin 4.2 g/dL (3.4-5.0); Calcium 9.6 mg/dL (8.5-10.1); Potassium 3.3 mmol/L (3.5-5.1)
[2018-04-10 19:55] LABS: INR 0.92 (0.9-1.15); Partial Thromboplastin Time 25.6 sec (23.78-33.04); Prothrombin Time 9.9 sec (9.27-12.13)
[2018-04-10 19:57] LABS: Bilirubin, Total 0.2 mg/dL (0.2-1.0); Total Protein 8.7 g/dL (6.4-8.2)
[2018-04-10] MEDS ORDERED: cloNIDine HCL 0.1 MG TAB PO ONE (20:30)
[2018-04-10] MEDS ORDERED: HYDROcodone-ACET 10/325MG TAB PO ONE (20:30)
[2018-04-10] MEDS ORDERED: LABETALOL HCL 5 MG/ML ML 20ML VIAL IV ONE (21:30)
[2018-04-10] MEDS ORDERED: POTASSIUM CHL 20 Meq TABLET PO ONE (21:45)
[2018-04-10] MEDS ORDERED: LABETALOL HCL 5 MG/ML 4ML SYRINGE IV ONE (21:45)
[2018-04-10] MEDS ORDERED: MORPHINE SULFATE 4 MG/ML SYR/VIAL IV ONE (21:45)
[2018-04-10] MEDS ORDERED: ONDANSETRON HCL 4 MG/2 ML VIAL IV ONE (21:45)
[2018-04-10] MEDS ORDERED: LORazepam 0.5 MG TAB PO ONE (23:00)
[2018-04-11] MEDS ORDERED: ONDANSETRON HCL 4 MG/2 ML VIAL IV ONE (00:15)
[2018-04-11] MEDS ORDERED: MORPHINE SULFATE 4 MG/ML SYR/VIAL IV ONE (00:15)
[2018-04-11 00:30] VITALS: BP 160/104
== END 2018-04-11 00:49 | disposition home or self-care (01) ==
LOC: EDBD 18:08 → ER 18:11
DX: S16.1XXA Strain of muscle, fascia and tendon at neck level, initial encounter (principal); F41.9 Anxiety disorder, unspecified; I10 Essential (primary) hypertension; R51 Headache; J44.9 Chronic obstructive pulmonary disease, unspecified; E11.9 Type 2 diabetes mellitus without complications; F12.10 Cannabis abuse, uncomplicated; K21.9 Gastro-esophageal reflux disease without esophagitis; I25.2 Old myocardial infarction; Z86.73 Personal history of transient ischemic attack (TIA), and cerebral infarction without residual deficits; Z91.018 Allergy to other foods; Z88.8 Allergy status to other drugs, medicaments and biological substances; Z79.82 Long term (current) use of aspirin; Z79.4 Long term (current) use of insulin; Z79.899 Other long term (current) drug therapy; Z90.49 Acquired absence of other specified parts of digestive tract; X58.XXXA Exposure to other specified factors, initial encounter; Y93.89 Activity, other specified; Y92.89 Other specified places as the place of occurrence of the external cause; Y99.8 Other external cause status
CPT/HCPCS: 36415; 70450; 71045; 72125; 80053; 83880; 84484; 85025; 85379; 85610; 85730; 93005; 96374; 96375; 96376; 99284; J2270; J2405; J3490

== ENCOUNTER 2018-08-28 20:14 | Emergency (ER) | payer MEDICAID ==
[~2018-08-28] VITALS: Ht 172.7 cm; Wt 99.8 kg
[2018-08-28] MEDS ORDERED: ASPirin 81 mg TAB PO ONE (21:00)
[2018-08-28] MEDS ORDERED: MORPHINE SULFATE 4 MG/ML SYR/VIAL IV ONE (21:00)
[2018-08-28] MEDS ORDERED: cloNIDine HCL 0.1 MG TAB PO ONE (21:00)
[2018-08-28] MEDS ORDERED: ONDANSETRON HCL 4 MG/2 ML VIAL IV ONE (21:00)
[2018-08-28 21:17] LABS: Basophils # (auto) 0 uL; Eosinophils # (auto) 0.3 uL; Lymphocytes # (auto) 2.2 uL; Monocytes # (auto) 0.5 uL; Neutrophils # (auto) 4.3 uL; Nucleated Red Blood Cells % 0.1 %; White Blood Cell 7.3 10^3/uL (4.4-10.8)
[2018-08-28 21:18] LABS: Basophils % (auto) 0.3 % (0.0-2.0); Eosinophils % (auto) 3.9 % (0.0-7.0); Hematocrit 36.8 % (41.0-53.0); Hemoglobin 12.5 g/dL (13.5-17.5); Lymphocytes % (auto) 30.4 % (10.0-50.0); Mean Corpuscular Hemoglobin 24.9 pg (28.0-32.0); Mean Corpuscular Hgb Conc. 33.8 g/dL (32.0-36.0); Mean Corpuscular Volume 73.6 fL (80.0-100.0); Monocytes % (auto) 6.6 % (0.0-12.0); Neutrophils % (auto) 58.8 % (37.0-80.0); Platelet Count (auto) 192 10^3/uL (140-450); Red Cell Distribution Width 17.5 % (11.8-14.3)
[2018-08-28 21:34] LABS: INR 0.97 (0.9-1.15); Partial Thromboplastin Time 26.5 sec (23.78-33.04); Prothrombin Time 10.4 sec (9.27-12.13)
[2018-08-28 21:50] LABS: Alanine Aminotransferase 31 U/L (16-61); Albumin 4.2 g/dL (3.4-5.0); Anion Gap 10 (5-15); Aspartate Aminotransferase 40 U/L (15-37); BUN/Creatinine Ratio 17.8; Blood Urea Nitrogen 16 mg/dL (7-18); Calcium 9.8 mg/dL (8.5-10.1); Carbon Dioxide 25 mmol/L (21-32); Chloride 100 mmol/L (98-107); GFR African American 112 mL/min; GFR Non-African American 92 mL/min; Glucose 193 mg/dL (74-106); Magnesium 1.8 mg/dL (1.6-2.6); Potassium 3.5 mmol/L (3.5-5.1); Sodium 135 mmol/L (136-145)
[2018-08-28 21:55] LABS: Alkaline Phosphatase 102 U/L (45-117); Bilirubin, Total 0.3 mg/dL (0.2-1.0); Total Protein 8.8 g/dL (6.4-8.2)
[2018-08-28] MEDS ORDERED: IOHEXOL 350 MG/ML 100ML IJ ONE (22:09)
[2018-08-29] MEDS ORDERED: MORPHINE SULFATE 4 MG/ML SYR/VIAL IV ONE (00:30)
[2018-08-29] MEDS ORDERED: LORazepam 2MG/ML-1ML VIAL IV ONE (03:00)
[2018-08-29] MEDS ORDERED: DEXTROSE (50%) 50ML SYRG IV PRN (04:30)
[2018-08-29] MEDS ORDERED: ONDANSETRON HCL 4 MG/2 ML VIAL IV PRN (04:30)
[2018-08-29] MEDS ORDERED: cloNIDine HCL 0.1 MG TAB PO PRN (04:30)
[2018-08-29] MEDS ORDERED: ACETAMINOPHEN 325 MG TAB PO PRN (04:30)
[2018-08-29] MEDS ORDERED: MORPHINE SULF INJ 2 MG/ML SYRINGE 1ML IV PRN (04:30)
[2018-08-29] MEDS ORDERED: HYDROcodone-ACET 5/325MG TAB PO PRN (04:30)
[2018-08-29] MEDS ORDERED: NITROGLYCERIN 0.4 MG SL TAB SL PRN (04:30)
[2018-08-29] MEDS ORDERED: TEMAZEPAM 15 MG CAP PO PRN (04:30)
[2018-08-29 04:52] VITALS: BP 121/66
[2018-08-29] MEDS ORDERED: ACCU-CHEK COMFORT CURVE STRIP VI SCH (06:00)
[2018-08-29] MEDS ORDERED: InsuLIN REG 1unit/0.01ml Soln (100units/ml) SC SCH (06:00)
[2018-08-29] MEDS ORDERED: amLODIPine BESYLATE 5 MG TAB PO SCH (10:00)
[2018-08-29] MEDS ORDERED: ASPirin 81 mg TAB PO SCH (10:00)
[2018-08-29] MEDS ORDERED: lamoTRIgine 25 MG TAB PO SCH (10:00)
[2018-08-29] MEDS ORDERED: FAMOTIDINE 20 MG TAB PO SCH (10:00)
[2018-08-29] MEDS ORDERED: ATORVASTATIN 20 MG TAB PO SCH (22:00)
== END 2018-08-29 05:07 | disposition home or self-care (01) ==
LOC: EDBD 20:14 → ER 20:23 → MERGE 20:23 → ER 08-29 05:07
DX: I20.8 Other forms of angina pectoris (principal); E11.9 Type 2 diabetes mellitus without complications; I10 Essential (primary) hypertension; F41.1 Generalized anxiety disorder; F32.9 Major depressive disorder, single episode, unspecified; I16.0 Hypertensive urgency; Z88.7 Allergy status to serum and vaccine; Z86.73 Personal history of transient ischemic attack (TIA), and cerebral infarction without residual deficits; Z90.49 Acquired absence of other specified parts of digestive tract
CPT/HCPCS: 36415; 70450; 71045; 71275; 80053; 83735; 83880; 84443; 84484; 85025; 85379; 85610; 85730; 93005; 94761; 96374; 96375; 96376; 99284; J2060; J2270; J2405; Q9967

== ENCOUNTER 2018-09-27 20:22 | Emergency (ER) | payer MEDICAID ==
[~2018-09-27] VITALS: Ht 177.8 cm; Wt 95.3 kg
[2018-09-27 20:39] VITALS: BP 177/98
[2018-09-27 23:47] LABS: Basophils # (auto) 0 uL; Basophils % (auto) 0.7 % (0.0-2.0); Eosinophils # (auto) 0.3 uL; Eosinophils % (auto) 4.2 % (0.0-7.0); Hematocrit 37.7 % (41.0-53.0); Hemoglobin 12.2 g/dL (13.5-17.5); Lymphocytes # (auto) 1.9 uL; Mean Corpuscular Hemoglobin 23.8 pg (28.0-32.0); Mean Corpuscular Hgb Conc. 32.3 g/dL (32.0-36.0); Mean Corpuscular Volume 73.6 fL (80.0-100.0); Monocytes # (auto) 0.4 uL; Monocytes % (auto) 6.9 % (0.0-12.0); Neutrophils # (auto) 3.5 uL; Neutrophils % (auto) 57.2 % (37.0-80.0); Nucleated Red Blood Cells % 0.1 %; Platelet Count (auto) 177 10^3/uL (140-450); Red Blood Cells 5.13 10^6/uL (4.5-5.90); Red Cell Distribution Width 17.3 % (11.8-14.3); White Blood Cell 6.2 10^3/uL (4.4-10.8)
[2018-09-28 00:05] LABS: Albumin 4.4 g/dL (3.4-5.0); BUN/Creatinine Ratio 10.3; Calcium 9.8 mg/dL (8.5-10.1); Potassium 3.8 mmol/L (3.5-5.1)
[2018-09-28 00:06] LABS: Bilirubin, Total 0.3 mg/dL (0.2-1.0); Total Protein 9.2 g/dL (6.4-8.2)
== END 2018-09-28 | disposition left against medical advice (07) ==
LOC: ER 20:24
DX: R53.1 Weakness (principal); Z53.21 Procedure and treatment not carried out due to patient leaving prior to being seen by health care provider
CPT/HCPCS: 36415; 71045; 80053; 85025; 93005

== ENCOUNTER 2018-10-30 13:57 | Inpatient (IN) | payer MEDICAID ==
[~2018-10-30] VITALS: Ht 177.8 cm; Wt 94.5 kg
[2018-10-30] MEDS ORDERED: ONDANSETRON HCL 4 MG/2 ML VIAL IV ONE (14:15)
[2018-10-30] MEDS ORDERED: MORPHINE SULFATE 4 MG/ML SYR/VIAL IV ONE (14:15)
[2018-10-30 15:15] LABS: Basophils # (auto) 0 uL; Eosinophils # (auto) 0.3 uL; Lymphocytes # (auto) 1.4 uL; Lymphocytes % (auto) 22.4 % (10.0-50.0); Monocytes # (auto) 0.5 uL
[2018-10-30 15:16] LABS: Basophils % (auto) 0.6 % (0.0-2.0); Eosinophils % (auto) 5.4 % (0.0-7.0); Hematocrit 36.8 % (41.0-53.0); Hemoglobin 11.8 g/dL (13.5-17.5); Mean Corpuscular Hemoglobin 23.5 pg (28.0-32.0); Mean Corpuscular Volume 73.4 fL (80.0-100.0); Monocytes % (auto) 7.2 % (0.0-12.0); Neutrophils # (auto) 4.2 uL; Neutrophils % (auto) 64.4 % (37.0-80.0); Platelet Count (auto) 178 10^3/uL (140-450); Red Blood Cells 5.02 10^6/uL (4.5-5.90); Red Cell Distribution Width 17.9 % (11.8-14.3); White Blood Cell 6.4 10^3/uL (4.4-10.8)
[2018-10-30 15:30] LABS: INR 0.99 (0.9-1.15)
[2018-10-30 15:35] LABS: Alanine Aminotransferase 37 U/L (16-61); Albumin 4.1 g/dL (3.4-5.0); Anion Gap 11 (5-15); Aspartate Aminotransferase 49 U/L (15-37); Blood Urea Nitrogen 19 mg/dL (7-18); Calcium 9.3 mg/dL (8.5-10.1); Carbon Dioxide 22 mmol/L (21-32); Chloride 101 mmol/L (98-107); Glucose 264 mg/dL (74-106); Magnesium 1.7 mg/dL (1.6-2.6); Potassium 3.8 mmol/L (3.5-5.1); Sodium 134 mmol/L (136-145)
[2018-10-30 15:40] LABS: Alkaline Phosphatase 136 U/L (45-117); BUN/Creatinine Ratio 17.8; Bilirubin, Total 0.2 mg/dL (0.2-1.0); GFR African American 91 mL/min; GFR Non-African American 75 mL/min; Total Protein 8.7 g/dL (6.4-8.2)
[2018-10-30] MEDS ORDERED: ACETAMINOPHEN 325 MG TAB PO ONE (15:45)
[2018-10-30] MEDS ORDERED: DEXTROSE (50%) 50ML SYRG IV PRN (17:15)
[2018-10-30] MEDS ORDERED: NITROGLYCERIN 0.4 MG SL TAB SL PRN (17:15)
[2018-10-30] MEDS ORDERED: HYDROcodone-ACET 5/325MG TAB PO PRN (17:15)
[2018-10-30] MEDS ORDERED: ACETAMINOPHEN 500 MG TAB PO PRN (17:15)
[2018-10-30] MEDS ORDERED: MORPHINE SULF INJ 2 MG/ML SYRINGE 1ML IV PRN (17:15)
[2018-10-30] MEDS: MORPHINE SULF INJ 2 MG/ML SYRINGE 1ML IV PRN (18:00)
[2018-10-30] MEDS: ONDANSETRON HCL 4 MG/2 ML VIAL IV PRN (18:01)
--- NOTE | 2018-10-30 18:35 | NUR ---
Telemetry admit from ER [place] admitted to Telemetry unit after SBAR received. Patient oriented to Norah Florian, primary RN, unit, room, bed, and unit policies regarding patient care and visiting hours. Patient now on continuous telemetry monitoring, tele box # hc 17 and telemetry reading on arrival to unit is sinus rhythm hr 80. Patient denies need for bedside oxygen. VSS. Patient states cp "tolerable pain level". Patient states "always has CP". Denies need for medication management at this time. No s/s of distress or sob noted. Pt weighed by bedscale and encouraged to call if they need something. All questions and concerns addressed, patient verbalized understanding. Will cont care
[2018-10-30 19:26] VITALS: BP 139/90
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
[2018-10-30 20:30] VITALS: BP 139/90
[2018-10-30 22:00] VITALS: BP 119/70
[2018-10-30] MEDS: HYDROcodone-ACET 10/325MG TAB PO SCH (22:00)
[2018-10-30] MEDS: InsuLIN REG 1unit/0.01ml Soln (100units/ml) SC SCH (22:00)
[2018-10-30] MEDS: clonazePAM 0.5 MG TAB PO SCH (22:10)
[2018-10-30] MEDS: DOCUSATE SOD 100 MG CAP PO SCH (22:10)
[2018-10-30] MEDS: ATORVASTATIN 20 MG TAB PO SCH (22:11)
[2018-10-30] MEDS: METOPROLOL TARTRATE 25 MG TAB PO SCH (22:15)
[2018-10-30] MEDS: ACCU-CHEK COMFORT CURVE STRIP VI SCH (22:21)
[2018-10-30] MEDS ORDERED: TEMAZEPAM 15 MG CAP PO ONE (22:45)
[2018-10-31] MEDS: MORPHINE SULF INJ 2 MG/ML SYRINGE 1ML IV PRN ×5 (02:02→18:39)
[2018-10-31 04:37] VITALS: BP 122/64
[2018-10-31] MEDS: HYDROcodone-ACET 10/325MG TAB PO SCH ×3 (06:00→22:00)
[2018-10-31] MEDS: InsuLIN REG 1unit/0.01ml Soln (100units/ml) SC SCH ×4 (06:28→22:11)
[2018-10-31] MEDS: ACCU-CHEK COMFORT CURVE STRIP VI SCH ×4 (06:31→22:11)
--- NOTE | 2018-10-31 07:48 | NUR ---
closing note Endorsed care to day shift RN. patient sitting in bed no s/s of distress or SOB noted.
--- NOTE | 2018-10-31 07:50 | NUR ---
Opening Shift Note Received report from Halley GALVEZ. Assumed care of patient, awake and alert. No S/S of distress/SOB. Reported reduced pain but looks anxious. Instructed on POC and to call for assist PRN, will continue to monitor for changes Q1hr and PRN.
[2018-10-31 08:00] VITALS: BP 129/67
[2018-10-31 09:00] VITALS: BP 129/67
[2018-10-31 09:03] LABS: Basophils # (auto) 0 uL; Basophils % (auto) 0.7 % (0.0-2.0); Eosinophils # (auto) 0.4 uL; Hemoglobin 12.8 g/dL (13.5-17.5); Lymphocytes # (auto) 1.4 uL; Monocytes # (auto) 0.4 uL
[2018-10-31 09:06] LABS: Chloride 101 mmol/L (98-107); Potassium 3.9 mmol/L (3.5-5.1); Sodium 133 mmol/L (136-145)
[2018-10-31 09:07] LABS: Eosinophils % (auto) 5.9 % (0.0-7.0); Hematocrit 39.3 % (41.0-53.0); Mean Corpuscular Hemoglobin 23.9 pg (28.0-32.0); Mean Corpuscular Hgb Conc. 32.5 g/dL (32.0-36.0); Mean Corpuscular Volume 73.6 fL (80.0-100.0); Monocytes % (auto) 5.5 % (0.0-12.0); Neutrophils # (auto) 4.6 uL; Neutrophils % (auto) 66.9 % (37.0-80.0); Nucleated Red Blood Cells % 0.3 %; Platelet Count (auto) 207 10^3/uL (140-450); Red Blood Cells 5.34 10^6/uL (4.5-5.90); Red Cell Distribution Width 17.5 % (11.8-14.3); White Blood Cell 6.8 10^3/uL (4.4-10.8)
[2018-10-31 09:19] LABS: Anion Gap 10 (5-15); BUN/Creatinine Ratio 14.3; Blood Urea Nitrogen 13 mg/dL (7-18); Calcium 9.6 mg/dL (8.5-10.1); Carbon Dioxide 22 mmol/L (21-32); Cholesterol 245 mg/dL (< 200); GFR African American 110 mL/min; GFR Non-African American 91 mL/min; Glucose 252 mg/dL (74-106); HDL Cholesterol 38 mg/dL (40-59); Triglycerides 1049 mg/dL (< 150)
[2018-10-31] MEDS ORDERED: TAMSULOSIN HYDROCHLORIDE 0.4 MG CAP PO SCH (10:00)
[2018-10-31] MEDS ORDERED: SERTRALINE HCL 50 MG TAB PO SCH (10:00)
[2018-10-31] MEDS: clonazePAM 0.5 MG TAB PO SCH ×2 (10:01→21:53)
[2018-10-31] MEDS: FAMOTIDINE 20 MG TAB PO SCH (10:02)
[2018-10-31] MEDS: ASPirin-EC 81 mg tab PO SCH (10:02)
[2018-10-31] MEDS: DOCUSATE SOD 100 MG CAP PO SCH ×2 (10:02→21:58)
[2018-10-31] MEDS: LISINOPRIL 10 MG TAB PO SCH (10:03)
[2018-10-31] MEDS: METOPROLOL TARTRATE 25 MG TAB PO SCH ×2 (10:03→22:00)
--- NOTE | 2018-10-31 12:00 | NUR ---
PATIENT COMPLAINED OF HAVING BOWEL MOVEMENT 10X TODAY, AND BLOOD IN STOOL & URINE. INSTRUCTED TO HAVE THE STOOL & URINE BE COLLECTED AND BE TESTED FOR CDIFF PROTOCOL. WILL INFORM HOSPITALIST.
[2018-10-31 13:00] VITALS: BP 129/74
[2018-10-31 13:22] LABS: Urine Bacteria NONE SEEN /hpf (None Seen); Urine Blood TRACE /uL (Negative); Urine Mucus FEW (None Seen); Urine Specific Gravity 1.018 (1.001-1.035); Urine Sperm PRESENT /hpf (None Seen); Urine WBC 2 /hpf (0 - 3)
--- NOTE | 2018-10-31 14:55 | NUR ---
Nolan KABA AT BEDSIDE.
--- NOTE | 2018-10-31 15:00 | NUR ---
RECEIVED NEW VERBAL ORDER FROM DR. KABA, SEE NEW ORDER.
--- NOTE | 2018-10-31 15:45 | NUR ---
URINE SAMPLE SENT TO LAB FOR URINE CULTURE.
--- NOTE | 2018-10-31 16:00 | NUR ---
DR. KABA MADE AWARE THAT DR. IZQUIERDO WILL NOT DO THE CARDIO CONSULT DUE TO PATIENT'S INSURANCE., AGREED TO TRANSFER THE CONSULT TO DR. Dale RUSSO.
[2018-10-31 17:17] VITALS: BP 134/68
--- NOTE | 2018-10-31 18:05 | NUR ---
RECEIVED A CALL FROM MICROBIOLOGY. PATIENT IS POSITIVE FOR CDIFF. INFORMED VOCAL ARTIST LUIS AND CHARGE NURSE RONNIE. PLACED PATIENT IN CONTACT ISOLATION. PATIENT EDUCATED ABOUT CDIFF AND VERBALIZED UNDERSTANDING.
--- NOTE | 2018-10-31 18:12 | NUR ---
PAGED HOSPITALIST REGARDING PATIENT'S POSITIVE FOR CDIFF. RECEIVED TELEPHONE ORDER FROM DR. HARDIN TO START PATIENT ON FLAGYL 250MG 1 TAB EVERY 8 HOURS.
[2018-10-31] MEDS: SERTRALINE HCL 50 MG TAB PO SCH (21:53)
[2018-10-31] MEDS: ATORVASTATIN 20 MG TAB PO SCH (21:54)
[2018-10-31 21:55] VITALS: BP 85/52
[2018-10-31] MEDS: metroNIDAZOLE 500 MG TAB PO SCH (21:59)
[2018-11-01] MEDS: MORPHINE SULF INJ 2 MG/ML SYRINGE 1ML IV PRN ×5 (01:53→20:23)
[2018-11-01 05:39] VITALS: BP 107/80
[2018-11-01 05:53] LABS: Basophils # (auto) 0 uL; Basophils % (auto) 0.6 % (0.0-2.0); Eosinophils # (auto) 0.4 uL; Eosinophils % (auto) 5.3 % (0.0-7.0); Hematocrit 36.6 % (41.0-53.0); Hemoglobin 12.2 g/dL (13.5-17.5); Lymphocytes # (auto) 2.1 uL; Mean Corpuscular Hemoglobin 24.4 pg (28.0-32.0); Mean Corpuscular Hgb Conc. 33.4 g/dL (32.0-36.0); Mean Corpuscular Volume 73.1 fL (80.0-100.0); Monocytes # (auto) 0.5 uL; Monocytes % (auto) 7.9 % (0.0-12.0); Neutrophils # (auto) 3.7 uL; Neutrophils % (auto) 55.2 % (37.0-80.0); Nucleated Red Blood Cells % 0.1 %; Platelet Count (auto) 179 10^3/uL (140-450); Red Blood Cells 5.01 10^6/uL (4.5-5.90); Red Cell Distribution Width 17.7 % (11.8-14.3); White Blood Cell 6.7 10^3/uL (4.4-10.8)
[2018-11-01] MEDS: HYDROcodone-ACET 10/325MG TAB PO SCH ×3 (06:00→22:16)
[2018-11-01 06:17] LABS: Chloride 103 mmol/L (98-107); Potassium 3.5 mmol/L (3.5-5.1); Sodium 134 mmol/L (136-145)
[2018-11-01] MEDS: metroNIDAZOLE 500 MG TAB PO SCH ×3 (06:24→22:15)
[2018-11-01 06:26] LABS: Alanine Aminotransferase 37 U/L (16-61); Albumin 3.7 g/dL (3.4-5.0); Alkaline Phosphatase 108 U/L (45-117); Aspartate Aminotransferase 44 U/L (15-37); Bilirubin, Total 0.4 mg/dL (0.2-1.0); Blood Urea Nitrogen 20 mg/dL (7-18); Carbon Dioxide 20 mmol/L (21-32); GFR African American 71 mL/min; GFR Non-African American 59 mL/min; Glucose 187 mg/dL (74-106); Total Protein 8.2 g/dL (6.4-8.2)
[2018-11-01] MEDS: InsuLIN REG 1unit/0.01ml Soln (100units/ml) SC SCH ×4 (06:34→22:17)
[2018-11-01] MEDS: ACCU-CHEK COMFORT CURVE STRIP VI SCH ×4 (06:35→22:17)
[2018-11-01 06:50] LABS: Anion Gap 11 (5-15)
--- NOTE | 2018-11-01 07:29 | NUR ---
closing note Endorsed care to day shift RN. patient laying in bed no s/s of distress or SOB noted.
--- NOTE | 2018-11-01 07:30 | NUR ---
Opening Shift Note Received report from Halley GALVEZ. Assumed care of patient, awake and alert. No S/S of distress/SOB. Reported stomach pain that does not go away, will give pain med in due time. No bowel movement today as claimed. Instructed on POC and to call for assist PRN, will continue to monitor for changes Q1hr and PRN.
[2018-11-01] MEDS: TAMSULOSIN HYDROCHLORIDE 0.4 MG CAP PO SCH (07:42)
[2018-11-01 08:00] VITALS: BP 118/71
[2018-11-01] MEDS: DOCUSATE SOD 100 MG CAP PO SCH ×2 (08:59→22:15)
[2018-11-01 09:00] VITALS: BP 118/71
[2018-11-01] MEDS: ONDANSETRON HCL 4 MG/2 ML VIAL IV PRN ×2 (09:00→20:23)
[2018-11-01] MEDS: ASPirin-EC 81 mg tab PO SCH (09:00)
[2018-11-01] MEDS: SERTRALINE HCL 50 MG TAB PO SCH ×2 (09:00→22:16)
[2018-11-01] MEDS: clonazePAM 0.5 MG TAB PO SCH ×2 (09:00→22:16)
[2018-11-01] MEDS: METOPROLOL TARTRATE 25 MG TAB PO SCH ×2 (09:01→22:16)
[2018-11-01] MEDS: LISINOPRIL 10 MG TAB PO SCH (09:01)
[2018-11-01] MEDS: FAMOTIDINE 20 MG TAB PO SCH (09:01)
[2018-11-01 13:00] VITALS: BP 115/56
--- NOTE | 2018-11-01 14:35 | NUR ---
DR. Dale Gauthier at bedside. Cardiology consult done.
--- NOTE | 2018-11-01 17:10 | NUR ---
Dr. Cason at bedside.
[2018-11-01 17:43] VITALS: BP 118/6
--- NOTE | 2018-11-01 19:16 | NUR ---
Opening Shift Note Assumed care of patient, awake and alert x4. No S/S of distress/SOB or pain. Call light is within reach, side rails up x2, bed is in lowest positio. Instructed on POC and to call for assist PRN, will continue to monitor for changes Q1hr and PRN.
[2018-11-01 22:00] VITALS: BP_SYST 110; BP_SYST 136; BP_DIAS 60; BP_DIAS 72
[2018-11-01] MEDS: ATORVASTATIN 20 MG TAB PO SCH (22:16)
[2018-11-02] MEDS: MORPHINE SULF INJ 2 MG/ML SYRINGE 1ML IV PRN ×5 (01:25→20:06)
[2018-11-02 05:00] VITALS: BP 120/62
[2018-11-02] MEDS: metroNIDAZOLE 500 MG TAB PO SCH ×3 (06:00→22:04)
[2018-11-02] MEDS: HYDROcodone-ACET 10/325MG TAB PO SCH ×3 (06:02→22:05)
[2018-11-02] MEDS: InsuLIN REG 1unit/0.01ml Soln (100units/ml) SC SCH ×4 (06:49→22:16)
[2018-11-02] MEDS: ACCU-CHEK COMFORT CURVE STRIP VI SCH ×4 (06:50→22:05)
[2018-11-02 07:09] LABS: Basophils # (auto) 0 uL; Eosinophils # (auto) 0.3 uL; Monocytes # (auto) 0.5 uL; Neutrophils # (auto) 3.2 uL; Neutrophils % (auto) 54.3 % (37.0-80.0)
[2018-11-02 07:14] LABS: Basophils % (auto) 0.7 % (0.0-2.0); Hematocrit 36.5 % (41.0-53.0); Hemoglobin 11.9 g/dL (13.5-17.5); Lymphocytes # (auto) 1.8 uL; Lymphocytes % (auto) 30.3 % (10.0-50.0); Mean Corpuscular Hgb Conc. 32.6 g/dL (32.0-36.0); Mean Corpuscular Volume 73.8 fL (80.0-100.0); Monocytes % (auto) 8.7 % (0.0-12.0); Platelet Count (auto) 167 10^3/uL (140-450); Red Blood Cells 4.95 10^6/uL (4.5-5.90); Red Cell Distribution Width 17.5 % (11.8-14.3); White Blood Cell 5.8 10^3/uL (4.4-10.8)
[2018-11-02 07:24] LABS: Anion Gap 11 (5-15); Blood Urea Nitrogen 21 mg/dL (7-18); Calcium 9.2 mg/dL (8.5-10.1); Carbon Dioxide 20 mmol/L (21-32); Chloride 106 mmol/L (98-107); Glucose 209 mg/dL (74-106); Potassium 4.1 mmol/L (3.5-5.1); Sodium 137 mmol/L (136-145)
[2018-11-02 07:26] LABS: BUN/Creatinine Ratio 20.4; GFR African American 95 mL/min; GFR Non-African American 79 mL/min
[2018-11-02 09:00] VITALS: BP 119/73
[2018-11-02] MEDS: DOCUSATE SOD 100 MG CAP PO SCH ×2 (10:00→22:00)
[2018-11-02] MEDS: TAMSULOSIN HYDROCHLORIDE 0.4 MG CAP PO SCH (10:49)
[2018-11-02] MEDS: SERTRALINE HCL 50 MG TAB PO SCH ×2 (10:50→22:04)
[2018-11-02] MEDS: clonazePAM 0.5 MG TAB PO SCH ×2 (10:50→22:04)
[2018-11-02] MEDS: FAMOTIDINE 20 MG TAB PO SCH (10:50)
[2018-11-02] MEDS: LISINOPRIL 10 MG TAB PO SCH (10:50)
[2018-11-02] MEDS: ASPirin-EC 81 mg tab PO SCH (10:51)
[2018-11-02] MEDS: METOPROLOL TARTRATE 25 MG TAB PO SCH ×2 (10:51→22:00)
[2018-11-02 13:00] VITALS: BP 118/78
[2018-11-02] MEDS ORDERED: TEMAZEPAM 15 MG CAP PO PRN (17:15)
[2018-11-02 17:24] VITALS: BP 146/72
--- NOTE | 2018-11-02 19:20 | NUR ---
Opening Shift Note Assumed care of patient, awake and alert x4. No S/S of distress/SOB. Patient complaining of 8/0-10 pain level, pain management options discussed. Call light is within reach, bed is in lowest position, side rails up x2. Instructed on POC and to call for assist PRN, all questions and concerns answered. Will continue to monitor for changes Q1hr and PRN.
[2018-11-02 22:00] VITALS: BP 105/69
[2018-11-02] MEDS: ATORVASTATIN 20 MG TAB PO SCH (22:04)
[2018-11-03] MEDS: MORPHINE SULF INJ 2 MG/ML SYRINGE 1ML IV PRN ×5 (00:27→17:19)
[2018-11-03 05:00] VITALS: BP 144/88
[2018-11-03 05:19] LABS: Basophils # (auto) 0.1 uL; Basophils % (auto) 0.8 % (0.0-2.0); Eosinophils # (auto) 0.4 uL; Lymphocytes # (auto) 2.3 uL; Lymphocytes % (auto) 29.7 % (10.0-50.0); Mean Corpuscular Volume 73.7 fL (80.0-100.0)
[2018-11-03 05:23] LABS: Eosinophils % (auto) 5.2 % (0.0-7.0); Hematocrit 39.7 % (41.0-53.0); Mean Corpuscular Hemoglobin 24.2 pg (28.0-32.0); Mean Corpuscular Hgb Conc. 32.8 g/dL (32.0-36.0); Monocytes # (auto) 0.5 uL; Monocytes % (auto) 7.1 % (0.0-12.0); Neutrophils # (auto) 4.4 uL; Neutrophils % (auto) 57.2 % (37.0-80.0); Nucleated Red Blood Cells % 0.1 %; Platelet Count (auto) 195 10^3/uL (140-450); Red Blood Cells 5.39 10^6/uL (4.5-5.90); Red Cell Distribution Width 17.7 % (11.8-14.3); White Blood Cell 7.7 10^3/uL (4.4-10.8)
--- NOTE | 2018-11-03 06:05 | NUR ---
IV insertion to left hand 20 g IV access obtained, via clean sterile technique by inserting 20 gauge catheter at the left hand after 5 attempt(s). IV secured properly. No trauma to site. Patient tolerated well.
[2018-11-03 06:27] LABS: Anion Gap 11 (5-15); BUN/Creatinine Ratio 20.7; Blood Urea Nitrogen 19 mg/dL (7-18); Calcium 9.7 mg/dL (8.5-10.1); Carbon Dioxide 21 mmol/L (21-32); Chloride 105 mmol/L (98-107); GFR African American 109 mL/min; GFR Non-African American 90 mL/min; Glucose 198 mg/dL (74-106); Potassium 4.2 mmol/L (3.5-5.1); Sodium 137 mmol/L (136-145)
[2018-11-03] MEDS: HYDROcodone-ACET 10/325MG TAB PO SCH ×2 (06:44→15:51)
[2018-11-03] MEDS: ACCU-CHEK COMFORT CURVE STRIP VI SCH ×3 (06:44→17:19)
[2018-11-03] MEDS: metroNIDAZOLE 500 MG TAB PO SCH ×2 (06:44→15:51)
[2018-11-03] MEDS: InsuLIN REG 1unit/0.01ml Soln (100units/ml) SC SCH ×3 (06:49→17:19)
[2018-11-03] MEDS: TAMSULOSIN HYDROCHLORIDE 0.4 MG CAP PO SCH (08:00)
[2018-11-03] MEDS ORDERED: ADENOSINE 79 MG in GIVE UN-DILUTED 0 ML IV STA (08:25)
[2018-11-03 09:14] VITALS: BP 118/49
[2018-11-03] MEDS: DOCUSATE SOD 100 MG CAP PO SCH (09:34)
[2018-11-03] MEDS: LISINOPRIL 10 MG TAB PO SCH (09:34)
[2018-11-03] MEDS: ASPirin-EC 81 mg tab PO SCH (09:34)
[2018-11-03] MEDS: clonazePAM 0.5 MG TAB PO SCH (09:34)
[2018-11-03] MEDS: SERTRALINE HCL 50 MG TAB PO SCH (09:34)
[2018-11-03] MEDS: METOPROLOL TARTRATE 25 MG TAB PO SCH (09:35)
[2018-11-03] MEDS: FAMOTIDINE 20 MG TAB PO SCH (09:35)
--- NOTE | 2018-11-03 11:40 | NUR ---
NUTRITION ASSESSMENT NOTES Please refer to link notes of nutrition screen form filed under the intervention section of the plan of care for further details. Est. Needs: 1900 kcal to 2350 kcal (20-25 kcal/kgBW), 76 gms to 95 gms pro (0.8-1.0 gms/kgBW). Will continue to monitor pertinent labs and reassess nutrient need prn Thank you. Addendum: 11/03/18 at [address] Amended: Links added.
[2018-11-03 13:00] VITALS: BP 123/61
[2018-11-03 14:16] VITALS: BP 153/94
[2018-11-03 17:00] VITALS: BP 162/100
--- NOTE | 2018-11-03 17:29 | NUR ---
AMA Note KALEIGH ALLISON states they want to leave the hospital Against Medical Advice (AMA). Patient encouraged to stay for further treatment/stabilization. DR SESAR NAVARRO notified of patient's wishes. Patient advised of the risks and benefits of leaving AMA. Patient verbalized understanding. Patient encouraged to return to the ER if symptoms do not improve or worsen.
== END 2018-11-03 17:30 | disposition left against medical advice (07) | DRG 198 ==
LOC: EDBD 13:57 → ER 13:57 → TELE 13:58 → TELE-WESTW 18:34
PROVIDERS: ADMIT Nurse Practitioner Acute Care; ATTEND Internal Medicine
DX: R07.89 Other chest pain (principal); I25.10 Atherosclerotic heart disease of native coronary artery without angina pectoris; E11.21 Type 2 diabetes mellitus with diabetic nephropathy; A04.72 Enterocolitis due to Clostridium difficile, not specified as recurrent; E11.65 Type 2 diabetes mellitus with hyperglycemia; S40.261A Insect bite (nonvenomous) of right shoulder, initial encounter; I10 Essential (primary) hypertension; E78.00 Pure hypercholesterolemia, unspecified; F32.9 Major depressive disorder, single episode, unspecified; D50.9 Iron deficiency anemia, unspecified; E66.9 Obesity, unspecified; E87.1 Hypo-osmolality and hyponatremia; S50.362A Insect bite (nonvenomous) of left elbow, initial encounter; W57.XXXA Bitten or stung by nonvenomous insect and other nonvenomous arthropods, initial encounter; F41.9 Anxiety disorder, unspecified; G89.4 Chronic pain syndrome; J44.9 Chronic obstructive pulmonary disease, unspecified; K21.9 Gastro-esophageal reflux disease without esophagitis; Z79.899 Other long term (current) drug therapy; Z82.3 Family history of stroke; Z79.891 Long term (current) use of opiate analgesic; Z82.49 Family history of ischemic heart disease and other diseases of the circulatory system; Z86.73 Personal history of transient ischemic attack (TIA), and cerebral infarction without residual deficits; Z79.4 Long term (current) use of insulin; Z83.3 Family history of diabetes mellitus; Z88.7 Allergy status to serum and vaccine; Z91.018 Allergy to other foods; Z90.49 Acquired absence of other specified parts of digestive tract; Y93.89 Activity, other specified; Y92.89 Other specified places as the place of occurrence of the external cause; Y99.8 Other external cause status; Z53.21 Procedure and treatment not carried out due to patient leaving prior to being seen by health care provider
CPT/HCPCS: 36415; 71045; 78452; 80048; 80053; 80061; 81001; 82270; 82962; 83036; 83735; 83880; 84443; 84484; 85025; 85610; 85730; 86141; 87045; 87086; 87493; 87899; 93005; 93017; 93306; 94761; 96374; 96375; 96376; G0378; J0153; J1815; J2405

== ENCOUNTER 2018-12-12 16:38 | Emergency (ER) | payer MEDICAID ==
[~2018-12-12] VITALS: Ht 177.8 cm; Wt 90.7 kg
[~2018-12-12 16:38] MED LIST changes: +ASPI-404 PO; -ASPI81TA27 PO; +CLON0.5T11 PO; -CLON05T PO
[2018-12-12 17:49] LABS: Albumin 3.9 g/dL (3.4-5.0); Anion Gap 10 (5-15); Blood Urea Nitrogen 11 mg/dL (7-18); Carbon Dioxide 23 mmol/L (21-32); Chloride 105 mmol/L (98-107); Glucose 197 mg/dL (74-106); Magnesium 1.8 mg/dL (1.6-2.6); Potassium 3.3 mmol/L (3.5-5.1); Sodium 138 mmol/L (136-145)
[2018-12-12 17:51] LABS: Alanine Aminotransferase 30 U/L (16-61); Aspartate Aminotransferase 25 U/L (15-37); BUN/Creatinine Ratio 11.8; GFR African American 107 mL/min; GFR Non-African American 89 mL/min
[2018-12-12 17:53] LABS: Basophils # (auto) 0 uL; Eosinophils # (auto) 0.2 uL; Hemoglobin 10.9 g/dL (13.5-17.5); Lymphocytes # (auto) 2.1 uL; Monocytes # (auto) 0.5 uL; Neutrophils # (auto) 3.4 uL; Red Blood Cells 4.63 10^6/uL (4.5-5.90); White Blood Cell 6.2 10^3/uL (4.4-10.8)
[2018-12-12 17:55] LABS: Basophils % (auto) 0.7 % (0.0-2.0); Eosinophils % (auto) 3.6 % (0.0-7.0); Lymphocytes % (auto) 33.3 % (10.0-50.0); Mean Corpuscular Hemoglobin 23.5 pg (28.0-32.0); Mean Corpuscular Volume 73.4 fL (80.0-100.0); Monocytes % (auto) 7.4 % (0.0-12.0); Nucleated Red Blood Cells % 0.1 %; Platelet Count (auto) 182 10^3/uL (140-450); Red Cell Distribution Width 18.3 % (11.8-14.3)
[2018-12-12 17:56] LABS: Alkaline Phosphatase 112 U/L (45-117); Bilirubin, Total 0.1 mg/dL (0.2-1.0); Total Protein 8.1 g/dL (6.4-8.2)
[2018-12-12 18:01] VITALS: BP 154/81
== END 2018-12-12 18:35 | disposition home or self-care (01) ==
LOC: EDBD 16:38 → ER 16:40
DX: R07.89 Other chest pain (principal); J44.9 Chronic obstructive pulmonary disease, unspecified; E11.9 Type 2 diabetes mellitus without complications; K21.9 Gastro-esophageal reflux disease without esophagitis; E78.5 Hyperlipidemia, unspecified; I10 Essential (primary) hypertension; I25.2 Old myocardial infarction; Z86.73 Personal history of transient ischemic attack (TIA), and cerebral infarction without residual deficits; Z79.899 Other long term (current) drug therapy; Z91.018 Allergy to other foods; Z88.7 Allergy status to serum and vaccine
CPT/HCPCS: 36415; 71045; 80053; 80320; 83735; 84484; 85025; 93005; 94761

== ENCOUNTER 2019-01-24 13:18 | Emergency (ER) | payer MEDICAID ==
[~2019-01-24] VITALS: Ht 175.3 cm; Wt 104.3 kg
[2019-01-24 14:21] LABS: Basophils # (auto) 0 uL; Mean Corpuscular Volume 71.4 fL (80.0-100.0); Monocytes # (auto) 0.6 uL; Neutrophils # (auto) 4.7 uL; Platelet Count (auto) 180 10^3/uL (140-450)
[2019-01-24 14:22] LABS: Basophils % (auto) 0.6 % (0.0-2.0); Eosinophils # (auto) 0.1 uL; Eosinophils % (auto) 1.7 % (0.0-7.0); Hematocrit 34.1 % (41.0-53.0); Hemoglobin 11.4 g/dL (13.5-17.5); Lymphocytes # (auto) 2.1 uL; Mean Corpuscular Hgb Conc. 33.6 g/dL (32.0-36.0); Monocytes % (auto) 7.7 % (0.0-12.0); Nucleated Red Blood Cells % 0.1 %; Red Blood Cells 4.77 10^6/uL (4.5-5.90); Red Cell Distribution Width 18.2 % (11.8-14.3); White Blood Cell 7.6 10^3/uL (4.4-10.8)
[2019-01-24 14:39] LABS: Albumin 3.8 g/dL (3.4-5.0); Anion Gap 9 (5-15); Blood Urea Nitrogen 15 mg/dL (7-18); Calcium 9.7 mg/dL (8.5-10.1); Carbon Dioxide 21 mmol/L (21-32); Chloride 106 mmol/L (98-107); Glucose 161 mg/dL (74-106); Potassium 3.1 mmol/L (3.5-5.1); Sodium 136 mmol/L (136-145)
[2019-01-24 14:46] LABS: Alanine Aminotransferase 35 U/L (16-61); Alkaline Phosphatase 100 U/L (45-117); Aspartate Aminotransferase 35 U/L (15-37); BUN/Creatinine Ratio 19.5; Bilirubin, Total 0.3 mg/dL (0.2-1.0); GFR African American 133 mL/min; GFR Non-African American 110 mL/min; Total Protein 7.7 g/dL (6.4-8.2)
[2019-01-24] MEDS ORDERED: ONDANSETRON HCL 4 MG/2 ML VIAL IV ONE ×2 (16:00→17:45)
[2019-01-24] MEDS ORDERED: MORPHINE SULFATE 4 MG/ML SYR/VIAL IV ONE (16:00)
[2019-01-24] MEDS ORDERED: HYDROmorphone HCL 2 MG/ML VL IV ONE (17:45)
[2019-01-24 18:03] VITALS: BP 105/67
== END 2019-01-24 19:30 | disposition home or self-care (01) ==
LOC: EDBD 13:18 → ER 13:22
DX: S16.1XXA Strain of muscle, fascia and tendon at neck level, initial encounter (principal); J44.9 Chronic obstructive pulmonary disease, unspecified; E11.9 Type 2 diabetes mellitus without complications; K21.9 Gastro-esophageal reflux disease without esophagitis; E78.5 Hyperlipidemia, unspecified; I10 Essential (primary) hypertension; F12.10 Cannabis abuse, uncomplicated; Z90.49 Acquired absence of other specified parts of digestive tract; Z88.8 Allergy status to other drugs, medicaments and biological substances; Z79.899 Other long term (current) drug therapy; Z79.82 Long term (current) use of aspirin; Z79.4 Long term (current) use of insulin; W22.8XXA Striking against or struck by other objects, initial encounter; Y93.89 Activity, other specified; Y92.89 Other specified places as the place of occurrence of the external cause; Y99.8 Other external cause status
CPT/HCPCS: 36415; 70450; 72125; 80053; 84484; 85025; 93005; 96374; 96375; 96376; 99284; J1170; J2270; J2405

== ENCOUNTER 2019-03-18 12:51 | Emergency (ER) | payer MEDICAID ==
[~2019-03-18] VITALS: Ht 177.8 cm; Wt 81.6 kg
[2019-03-18] MEDS ORDERED: KETOROLAC TROMETH 60MG/2ML VIAL IM ONE (15:15)
[2019-03-18 16:10] VITALS: BP 149/86
== END 2019-03-18 16:10 | disposition home or self-care (01) ==
LOC: ER 12:51
DX: S90.02XA Contusion of left ankle, initial encounter (principal); M54.2 Cervicalgia; G89.29 Other chronic pain; W54.0XXA Bitten by dog, initial encounter; Y93.89 Activity, other specified; Y92.89 Other specified places as the place of occurrence of the external cause; Y99.8 Other external cause status
CPT/HCPCS: 96372; 99283; J1885